=== PATIENT | male | born 1945 | race Caucasian/White ===

== ENCOUNTER 2020-04-06 18:35 | Inpatient (IN) | payer BC, MEDICARE, SELFPAY ==
--- NOTE | ~2020-04-06 | CT_ITS ---
EXAMINATION: CTA chest PE protocol DATE: 04/10/2020 13:40 INDICATION: Hemoptysis. TECHNIQUE: Computed tomography (CT) pulmonary angiogram of the chest was performed with 100 mL Omnipa que-350 intravenous contrast. Additional 3D reconstructions utilizing coronal maximum intensity proje ction (MIP) were performed. Automated exposure control and iterative reconstruction technique were em ployed. The dose-length product was 633.96 mGy-cm. COMPARISON: None FINDINGS: Excellent contrast opacification of the pulmonary arteries. There is moderate streak artifact from de nse contrast in the superior vena cava and right atrium as well as from multiple cardiac monitoring l rigoberto. Mild to moderate scattered respiratory motion artifact is prominent at the lung bases. Overall this mildly decreases sensitivity in the segmental pulmonary arteries with more significant decrease sensitivity in some of the smaller subsegmental pulmonary arteries. No definitive pulmonary embolism. There are patchy airspace opacities diffusely throughout all lung zones atypical pattern for COVID 1 9 pneumonia. Small bilateral posteriorly layering pleural effusions. Borderline heart size. Atheroscl erotic coronary artery calcification. No pericardial effusion. Multiple small mediastinal and bilater al hilar lymph nodes which are more notable for number than size and which are likely reactive. Visua l is upper abdomen is unremarkable. There are bridging osteophytes at multiple levels in the spine, c onsistent with diffuse idiopathic skeletal hyperostosis (DISH). IMPRESSION: 1. No pulmonary embolism identified although evaluation in some of the smaller subsegmental pulmonary arteries is decreased by streak and motion artifact. 2. Diffuse bilateral patchy airspace disease throughout all lung zones with typical pattern for COVID 19 pneumonia. 2. Small bilateral pleural effusions. 4. Borderline heart size with coronary artery disease. Reviewed, dictated and finalized at location A. IMPRESSION: 1. No pulmonary embolism identified although evaluation in some of the smaller subsegmental pulmonary arteries is decreased by streak and motion artifact. 2. Diffuse bilateral patchy airspace disease throughout all lung zones with typ ical pattern for COVID 19 pneumonia. 2. Small bilateral pleural effusions. 4. Borderline heart size with coronary artery disease.
--- NOTE | ~2020-04-06 | XR_ITS ---
XR chest 1V portable 04/06/2020 20:15 Indication: Shortness of breath. Covid positive. Procedure: AP portable chest Comparison: No prior studies for comparison. Findings: Right perihilar and left basilar infiltrates. Elevated right diaphragm. Heart size normal. No pleural effusion, edema or pneumothorax. Impression: 1: Right perihilar and left basilar infiltrates, compatible with pneumonia Reviewed, dictated and finalized at location A. Impression: 1: Right perihilar and left basilar infiltrates, compatible with pneumonia
[2020-04-06 18:52] VITALS: BP 120/77; PULSE 89; RESP 20; TEMP 37.7; O2SAT 97
--- NOTE | 2020-04-06 18:57 | ECG_ITS ---
Measurements Intervals [place] Rate: 86 P: 34 FL: 191 QRS: 44 QRSD: 96 T: 51 QT: 335 QTc: 402 Interpretive Statements SINUS RHYTHM DELAYED PRECORDIAL R/S TRANSITION BORDERLINE ECG Electronically Signed On 04-07-2020 6:44:44 CDT by Mateusz Cook D.O.
[2020-04-06 19:20] LABS: Basophils Percent Auto 0.3 % (0.2-1.2); Eosinophils Percent Auto 0.9 % (0-4.4); Hematocrit 51.6 % (42.0-52.0); Hemoglobin 17.4 g/dL (14.0-18.0); Immature Granulocyte Absolute 0.05 K/mm3 (0.00-0.031); Immature Granulocyte Percent A 1.5 % (0-0.5); Lymphocytes Absolute Auto 0.72 K/mm3 (0.9-3.2); Lymphocytes Percent Auto 21.7 % (18.3-44.2); Mean Corpuscular HGB Conc 33.7 g/dl (32-36); Mean Corpuscular Hemoglobin 30.7 pg (26-34); Mean Corpuscular Volume 91.2 fl (80-100); Mean Platelet Volume 9.5 fl (7.4-10.4); Monocytes Absolute Auto 0.4 K/mm3 (0.1-0.6); Monocytes Percent Auto 11.4 % (2.6-8.5); Neutrophils Absolute Auto 2.1 K/mm3 (1.3-6.7); Neutrophils Percent Auto 64.2 % (45.5-73.1); Platelet Count Result 182 k/mm3 (150-375); Red Blood Count 5.66 M/mm3 (4.6-6.20); Red Cell Distribution Width 13.9 % (11.5-14.5); White Blood Count 3.3 K/mm3 (4.5-10.0)
[2020-04-06 19:34] LABS: Blood Urea Nitrogen 30 mg/dL (9-20); Calcium 8.1 mg/dL (8.4-10.2); Carbon Dioxide 25 mmol/L (22-30); Chloride 102 mmol/L (98-107); Estimated CRCL calculation 42 ml/min; Estimated Glomerular Filt Rate 40; Glucose 91 mg/dL (75-110); Potassium 4.3 mmol/L (3.4-5.0); Sodium 138 mmol/L (137-145)
[2020-04-06] MEDS: SODIUM CHLORIDE 0.9% IV 1,000 ML 999 ML IV CONT (20:34)
--- NOTE | 2020-04-06 20:38 | ED.GENADULT ---
HPI - General Adult General Chief complaint: Shortness of Breath/Dyspnea Stated complaint: cant take deep breaths, covid + Time Seen by Provider: 04/06/20 20:01 History of Present Illness HPI narrative: Patient is a 74 y/o male complaining of dull chest pain starting 6 days ago. He states that his pain is located in mid-sternal area and rates it as 8/10. His pain is worse with respiration and cough. He also feels like he can't take a deep breath. He has cough and fever up to 102.7. He had COVID test at a [facility] facility recently and he was told that it was positive. Related Data Allergies Allergy/AdvReac Type Severity Reaction Status Date / Time No Known Allergies Allergy Verified 04/06/20 18:36 Review of Systems Constitutional: Constitutional: Reports chills, Reports fever(s), Denies headache(s) and Denies weakness Eyes: Eyes: Denies blurry vision ENT: Denies headache(s) and Denies neck pain Cardiovascular: Cardiovascular: Reports chest pain and Reports dyspnea Respiratory: Respiratory: Reports cough and Reports dyspnea Gastrointestinal: Gastrointestinal: Denies abdominal pain, Denies diarrhea, Denies nausea and Denies vomiting Genitourinary: Genitourinary: Denies hematuria and Denies dysuria Musculoskeletal: Musculoskeletal: Denies back pain and Denies neck pain Neurologic: Denies headache(s) and Denies weakness PMFSH Past Medical History Medical History Abnormal fasting glucose Benign paroxysmal positional vertigo due to bilateral vestibular disorder Carpal tunnel syndrome Chronic low back pain with right-sided sciatica Chronic neck pain COVID-19 virus detected De Quervain's tenosynovitis, left Encounter for wellness examination in adult Essential (primary) hypertension Gouty arthritis of right great toe Hypogonadism male Mixed hyperlipidemia Nocturia Obstructive sleep apnea Severe peripheral arterial disease Trigger finger of right thumb UTI (urinary tract infection) Family History Family History Father Patient's father is , Onset Age: 65 Family history of emphysema Social History Social History Smoking status: Never smoker Alcohol intake: current Gender identity (if verbalized by the patient): Male Exam Const: General: no acute distress and well developed Orientation/consciousness: oriented to person, oriented to place, oriented to time and patient oriented x3 HENMT: Head: normocephalic Ears: external ears normal General nose exam: Normal external nose present Eyes: General: appearance normal, both eyes and all related structures Conjunctivae: conjunctivae normal Neck: Neck: normal visual inspection and full ROM Chest: Chest palpation & inspection: normal inspection of the chest and no tenderness Resp: Effort & Inspection: normal respiratory effort Auscultation: clear to auscultation bilaterally Cardio: Rate: regular rate Rhythm: regular rhythm GI: GI Palp: No abdominal tenderness and Yes Soft to palpation Skin: General skin exam: normal color and turgor normal Neuro: General: oriented to person, oriented to place, oriented to time and patient oriented x3 Cognition (Neuro): normal cognition Extrem: General: normal to inspection, full ROM and no pedal edema Psych: Appearance: grossly normal Mental Status: mental status grossly normal Affect: normal affect Course Consultations Consultation #1: Discussed with Dr. Camacho, who agrees to admit. Date: 04/06/20 Time: 22:04 Vital Signs Vital signs: Vital Signs Temperature 37.7 C H 04/06/20 18:52 Pulse Rate 89 04/06/20 18:52 Respiratory Rate 20 04/06/20 18:52 Blood Pressure 120/77 04/06/20 18:52 Pulse Oximetry 97 04/06/20 18:52 Temperature 37.7 C H 04/06/20 18:52 Pulse Rate 83 04/06/20 21:02 Respiratory Rate 30 H 04/06/20 21:02 Bl
[2020-04-06 20:57] LABS: D Dimer 0.47 ug/mL (<0.48)
[2020-04-06 21:02] VITALS: BP 137/80; PULSE 83; RESP 30; O2SAT 96
[2020-04-06 21:04] LABS: Troponin I 0.014 ng/mL (0.000-0.034)
[2020-04-06 23:00] VITALS: BP 137/81; PULSE 87; RESP 18; O2SAT 96
[2020-04-06 23:10] VITALS: BP 149/71; PULSE 89; RESP 24; TEMP 38.2; O2SAT 95; BMI 31.0
--- NOTE | 2020-04-06 23:20 | ADMGEN ---
This patient, Keshav Pelletier, was admitted to [facility] Surg Room 330-01. Patient/family oriented to hospital policies and general routines including ID bracelet, bed and alarms, visiting hours, pain management, procedures, bathroom and other care routines, personal items, smoking policy, room service/diet, and visiting hours. Valuables list has been completed. Information on how to activate the Rapid Response Team has been discussed. Patient/Family are encouraged to report perceived risks to care and to ask questions if they do not understand what they are told or what they should do.
[2020-04-06] MEDS: SODIUM CHLORIDE 0.9% IV 1,000 ML 125 ML IV CONT (23:31)
[2020-04-06 23:33] LABS: Troponin I 0.015 ng/mL (0.000-0.034)
[2020-04-07] VITALS (15 sets, daily range): BP systolic 130–140; BP diastolic 73–78; PULSE 76–89; RESP 18–24; TEMP 36.8–38.4; O2SAT 90–94
[2020-04-07] MEDS: ACETAMINOPHEN 325 MG TABLET 650 MG PO ×3 (01:10→14:29)
[2020-04-07 02:00] LABS: Troponin I 0.016 ng/mL (0.000-0.034)
[2020-04-07 06:32] LABS: Hematocrit 46.3 % (42.0-52.0); Hemoglobin 15.4 g/dL (14.0-18.0); Mean Corpuscular HGB Conc 33.3 g/dl (32-36); Mean Corpuscular Hemoglobin 30.1 pg (26-34); Mean Corpuscular Volume 90.4 fl (80-100); Mean Platelet Volume 9.2 fl (7.4-10.4); Platelet Count Result 168 k/mm3 (150-375); Red Blood Count 5.12 M/mm3 (4.6-6.20); Red Cell Distribution Width 13.8 % (11.5-14.5); White Blood Count 3.5 K/mm3 (4.5-10.0)
[2020-04-07 07:02] LABS: Alanine Aminotransferase 15 U/L (4-50); Albumin Level 3.2 g/dL (3.5-5.1); Alkaline Phosphatase 56 U/L (38-126); Aspartate Amino Transferase 34 U/L (17-59); Bilirubin,Total 0.6 mg/dL (0.2-1.3); Blood Urea Nitrogen 21 mg/dL (9-20); CRP 18.6 mg/dL (<1.0); Calcium 7.4 mg/dL (8.4-10.2); Carbon Dioxide 20 mmol/L (22-30); Chloride 107 mmol/L (98-107); Estimated CRCL calculation 58 ml/min; Estimated Glomerular Filt Rate 60; Glucose 119 mg/dL (75-110); Lactate Dehydrogenase 558 U/L (313-618); Potassium 3.8 mmol/L (3.4-5.0); Sodium 137 mmol/L (137-145)
--- NOTE | 2020-04-07 08:15 | PM.IMHP ---
H&P: HPI History of Present Illness Chief complaint: darya, covid Narrative: Keshav Pelletier is a 74 year old male known to be COVID-19 positive who presented emergency room last night due to chest tightness, shortness of breath, and pleuritic chest pain. Patient states that he started having symptoms March 30 after being exposed to someone who had COVID. He tested positive at [employer] on the . He states his girlfriend and her employees also are positive. He has been mostly sleeping and he runs intermittent fevers. He does not have many chills or muscle aches. He says he has had a lingering cough since the and is not coughing up anything. He is not eating and drinking very much because he has no appetite but he does have a sense of taste and smell. He has never had a blood clot before or cardiac disease. He used to be a diabetic but with diet control, exercise and weight loss he is no longer diabetic. He denies nausea, vomiting, leg swelling, rashes, wounds, headaches, or neck stiffness. He drinks about two beers a day has never had any withdrawal like type symptoms. Review of Systems Review of Systems: All systems reviewed & are unremarkable except as noted in HPI and below PMFSH Past Medical History Medical History (Updated 04/07/20 @ 10:14 by Viviana Marrufo PA-C) Abnormal fasting glucose Benign paroxysmal positional vertigo due to bilateral vestibular disorder Carpal tunnel syndrome Chronic low back pain with right-sided sciatica Chronic neck pain COVID-19 virus detected De Quervain's tenosynovitis, left Encounter for wellness examination in adult Essential (primary) hypertension Gouty arthritis of right great toe Hypogonadism male Mixed hyperlipidemia Nocturia Obstructive sleep apnea Trigger finger of right thumb UTI (urinary tract infection) Surgical History Surgical History (Updated 04/07/20 @ 10:15 by Viviana Marrufo PA-C) History of carpal tunnel release Hx of tonsillectomy Status post trigger finger release Family History Family History (Updated 04/07/20 @ 10:16 by Viviana Marrufo PA-C) Father Patient's father is , Onset Age: 65 Family history of emphysema Son COPD (chronic obstructive pulmonary disease) Social History Social History (Updated 04/07/20 @ 10:18 by Viviana Marrufo PA-C) Social History: Patient is a former smoker and quit 1963. He drinks 2 alcoholic drinks a day. He does not do any drugs. He is a retired [employer] employee. He lives at home. He would like to be a full code and if he was unable to make his decisions he would like his son, Garo, to be his surrogate decision maker. Smoking status: Never smoker Alcohol intake: current Drinks per week: 6 Substance use: never Gender identity (if verbalized by the patient): Male Spiritual care concerns: No Meds Home Medications and Allergies Home Medications Medication Instructions Recorded Confirmed Type lisinopril 20 mg tablet 20 mg PO DAILY #90 tablet 02/26/20 04/06/20 Rx atorvastatin 5 mg PO HS 04/06/20 04/06/20 History Allergies Allergy/AdvReac Type Severity Reaction Status Date / Time No Known Allergies Allergy Verified 04/06/20 18:36 Vital Signs Vital Signs - 24 hr 04/06/20 18:52 04/06/20 21:02 04/06/20 23:00 Temperature 99.9 F H Pulse Rate 89 83 87 Respiratory Rate 20 30 H 18 Blood Pressure 120/77 137/80 137/81 Pulse Oximetry 97 96 96 04/06/20 23:10 04/07/20 01:10 04/07/20 02:00 Temperature 100.8 F H 101.1 F H 101.1 F H Pulse Rate 89 89 Respiratory Rate 24 H 24 H Blood Pressure 149/71 H 136/73 Pulse Oximetry 95 92 04/07/20 05:48 04/07/20 06:18 Temperature 100.7 F H 100.7 F H Pulse Rate 87 Respiratory Rate 22 H Blood Pressure 137/77 Pulse Oximetry 90 Exam Narrative: Exam Narrative: General:Well developed well nourished patient resting comfortably on the side of the bed in no acute distress HEENT: Normocephali
[2020-04-07] MEDS: SODIUM CHLORIDE 0.9% IV 1,000 ML 125 ML IV CONT (08:48)
[2020-04-07 09:03] LABS: Glucose Point of Care 108 (65-105)
[2020-04-07] MEDS: ENOXAPARIN 40 MG/0.4 ML SYRINGE SUB-Q (12:19)
[2020-04-07] MEDS: ALBUTEROL SULFATE (*SP) AEROSOL 1 PUFF 2 PUFF INHALATION ×3 (12:54→20:59)
[2020-04-07] MEDS: ATORVASTATIN 5 MG TABLET PO (20:50)
[2020-04-08] VITALS (15 sets, daily range): BP systolic 135–143; BP diastolic 70–80; PULSE 77–95; RESP 16–22; TEMP 36.7–37.7; O2SAT 90–95
[2020-04-08 06:27] LABS: Hematocrit 45.2 % (42.0-52.0); Hemoglobin 15.2 g/dL (14.0-18.0); Mean Corpuscular HGB Conc 33.6 g/dl (32-36); Mean Corpuscular Hemoglobin 30.1 pg (26-34); Mean Corpuscular Volume 89.5 fl (80-100); Mean Platelet Volume 9.2 fl (7.4-10.4); Platelet Count Result 184 k/mm3 (150-375); Red Blood Count 5.05 M/mm3 (4.6-6.20); Red Cell Distribution Width 13.9 % (11.5-14.5); White Blood Count 3.9 K/mm3 (4.5-10.0)
[2020-04-08 06:37] LABS: D Dimer 0.45 ug/mL (<0.48)
[2020-04-08 06:50] LABS: Blood Urea Nitrogen 15 mg/dL (9-20); Calcium 7.5 mg/dL (8.4-10.2); Carbon Dioxide 21 mmol/L (22-30); Chloride 107 mmol/L (98-107); Estimated CRCL calculation 69 ml/min; Estimated Glomerular Filt Rate > 60; Glucose 110 mg/dL (75-110); Lactate Dehydrogenase 740 U/L (313-618); Potassium 4.1 mmol/L (3.4-5.0); Sodium 137 mmol/L (137-145)
[2020-04-08 07:03] LABS: CRP 13.6 mg/dL (<1.0)
[2020-04-08] MEDS: ALBUTEROL SULFATE (*SP) AEROSOL 1 PUFF 2 PUFF INHALATION ×3 (09:18→21:31)
[2020-04-08] MEDS: ENOXAPARIN 40 MG/0.4 ML SYRINGE SUB-Q (09:41)
--- NOTE | 2020-04-08 15:37 | PM.IMPN ---
Progress Note: A&P Assessment and Plan (1) Pneumonia due to COVID-19 virus: Code(s): U07.1 - COVID-19; J12.89 - Other viral pneumonia Status: Acute Assessment and Plan: Patient tested COVID-19 positive outpatient. Symptoms began 03/30. He continues with shortness of breath, uncomfortable and having difficulty taking deep breaths. Ordered incentive spirometry and discussed importance of deep breathing. Lying prone if he can tolerate. Continue supportive care with Tylenol for fevers, added Tessalon perles for his ongoing cough. Hopeful for discharge tomorrow if no fevers or hypoxia. (2) LOI (acute kidney injury): Code(s): N17.9 - Acute kidney failure, unspecified Status: Resolved Assessment and Plan: Resolved. Monitor renal function. Home lisinopril held, can add back if his pressures increase. (3) CONRAD on CPAP: Code(s): G47.33 - Obstructive sleep apnea (adult) (pediatric); Z99.89 - Dependence on other enabling machines and devices Status: Acute Assessment and Plan: Unable to use CPAP from home due to COVID. (4) Essential (primary) hypertension: Code(s): I10 - Essential (primary) hypertension Status: Acute Assessment and Plan: BP stable with home lisinopril held, will monitor and adjust treatment as needed. (5) Mixed hyperlipidemia: Code(s): E78.2 - Mixed hyperlipidemia Status: Acute Assessment and Plan: Maintained on home statin therapy. Subjective Date/time seen: 04/08/20 1300 Interval history: Mr. Pelletier is a 74yo M admitted for pneumonia due to COVID-19. He reports he feels like crap and is having great difficulty taking deep breaths in. He is breathing in short, shallow breaths. Deep breaths illicits significant coughing. He denies chest pain. Poor appetite but no nausea or vomiting. Review of Systems Review of Systems: Narrative: Twelve systems were reviewed with pertinent positives and negatives as per HPI. Exam Narrative: Exam Narrative: General: Male sitting in bedside chair in no acute distress. HEENT: Normocephalic, EOMI, oral mucosa moist. Cardiovascular: Rate and rhythm are regular. Respiratory: Decreased breath sounds JANICE. Mild conversational dyspnea after walking back from restroom. Short shallow breaths. Tolerating room air. Abdomen: Soft, non-tender, non-distended, bowel sounds present. Extremities: Peripheral pulses intact. No edema. Neuro: No focal neurological deficits. Speech is clear. Objective Data Vital Signs Vital Signs: Last Vital Signs Temp 99.9 F H 04/08/20 18:00 Pulse 84 04/08/20 18:00 Resp 20 04/08/20 18:00 BP 143/80 H 04/08/20 18:00 Pulse Ox 94 04/08/20 18:00 Intake/Output Intake/Output: Intake & Output 04/05/20 04/06/20 04/07/20 04/08/20 23:59 23:59 23:59 23:59 Intake Total 1000 3480 950 Output Total 1000 Balance 1000 2480 950 Meds/Results Medications: Active Medications Generic Name Dose Route Start Last Admin Trade Name Freq PRN Reason Stop Dose Admin Acetaminophen 650 mg 04/07/20 10:25 04/07/20 14:29 Tylenol Tablet PO 650 mg Q4H PRN Administration Pain or Fever Albuterol 2 puff 04/07/20 12:00 04/08/20 11:56 Proventil Hfa INHALATION 2 puff QIDRT GENIA Administration Atorvastatin Calcium 5 mg 04/07/20 21:00 04/07/20 20:50 Lipitor PO 5 mg HS GENIA Administration Benzonatate 100 mg 04/08/20 17:00 Tessalon Perles PO TID GENIA Enoxaparin Sodium 40 mg 04/07/20 10:25 04/08/20 09:41 Lovenox SUB-Q 40 mg DAILY GENIA Administration Hydralazine HCl 10 mg 04/07/20 10:23 Apresoline Hcl Inj IV PUSH Q8H PRN systolic <170 Radiology Results: ITS Impressions Chest X-Ray 04/06/20 20:19 Impression: 1: Right perihilar and left ba
[2020-04-08] MEDS: ATORVASTATIN 5 MG TABLET PO (20:32)
[2020-04-08] MEDS: BENZONATATE 100 MG CAPSULE PO (20:32)
[2020-04-08] MEDS: ACETAMINOPHEN 325 MG TABLET 650 MG PO (21:35)
[2020-04-09] VITALS (19 sets, daily range): BP systolic 129–162; BP diastolic 65–79; PULSE 77–101; RESP 20–22; TEMP 36.7–37.8; O2SAT 87–97
[2020-04-09] MEDS: guaiFENesin/DEXTROMETHORPHAN 10 ML UDC PO (06:00)
[2020-04-09] MEDS: ALBUTEROL SULFATE (*SP) AEROSOL 1 PUFF 2 PUFF INHALATION ×2 (09:22→13:40)
[2020-04-09] MEDS: ACETAMINOPHEN 325 MG TABLET 650 MG PO ×2 (10:17→20:16)
[2020-04-09] MEDS: ENOXAPARIN 40 MG/0.4 ML SYRINGE SUB-Q (10:17)
[2020-04-09] MEDS: BENZONATATE 100 MG CAPSULE PO ×3 (10:17→18:00)
--- NOTE | 2020-04-09 15:48 | PM.IMPN ---
Progress Note: A&P Assessment and Plan (1) Pneumonia due to COVID-19 virus: Code(s): U07.1 - COVID-19; J12.89 - Other viral pneumonia Status: Acute Assessment and Plan: Patient tested COVID-19 positive outpatient. Symptoms began 03/30. He continues with shortness of breath, uncomfortable and having difficulty taking deep breaths. Ordered incentive spirometry and discussed importance of deep breathing. Lying prone if he can tolerate. Continue supportive care with Tylenol for fevers, added Tessalon perles for his ongoing cough. Hopeful for discharge tomorrow if no fevers or hypoxia. Home O2 eval tomorrow. (2) LOI (acute kidney injury): Code(s): N17.9 - Acute kidney failure, unspecified Status: Resolved Assessment and Plan: Resolved. Monitor renal function. Home lisinopril held, can add back if his pressures increase. (3) CONRAD on CPAP: Code(s): G47.33 - Obstructive sleep apnea (adult) (pediatric); Z99.89 - Dependence on other enabling machines and devices Status: Acute Assessment and Plan: Unable to use CPAP from home due to COVID. (4) Essential (primary) hypertension: Code(s): I10 - Essential (primary) hypertension Status: Acute Assessment and Plan: BP stable with home lisinopril held, will monitor and adjust treatment as needed. (5) Mixed hyperlipidemia: Code(s): E78.2 - Mixed hyperlipidemia Status: Acute Assessment and Plan: Maintained on home statin therapy. Subjective Date/time seen: 04/09/20 1445 Interval history: Mr. Pelletier is a 74yo M admitted for pneumonia due to COVID-19. He is still feeling quite poorly today with difficulty taking in deep breaths. He described one episode of hemoptysis today. He denies chest pain. Poor appetite but no nausea or vomiting. Review of Systems Review of Systems: Narrative: Twelve systems were reviewed with pertinent positives and negatives as per HPI. Except as documented, all other systems were reviewed and are negative. Exam Narrative: Exam Narrative: General: Male resting comfortably in bed in no acute distress. HEENT: Normocephalic, EOMI, oral mucosa moist. Cardiovascular: Rate and rhythm are regular. Respiratory: Decreased breath sounds JANICE. Mild conversational dyspnea. Short shallow breaths. Was saturating 88% on room air prior to my exam, now tolerating 1 L O2. Abdomen: Soft, non-tender, non-distended, bowel sounds present. Extremities: Peripheral pulses intact. Neuro: No focal neurological deficits. Speech is clear. Objective Data Vital Signs Vital Signs: Last Vital Signs Temp 99.4 F 04/09/20 11:15 Pulse 91 04/09/20 10:00 Resp 22 H 04/09/20 10:00 BP 162/79 H 04/09/20 10:00 Pulse Ox 92 04/09/20 13:05 Intake/Output Intake/Output: Intake & Output 04/06/20 04/07/20 04/08/20 04/09/20 23:59 23:59 23:59 23:59 Intake Total 1000 3480 1350 1440 Output Total 1000 450 700 Balance 1000 2480 900 740 Meds/Results Medications: Active Medications Generic Name Dose Route Start Last Admin Trade Name Freq PRN Reason Stop Dose Admin Acetaminophen 650 mg 04/07/20 10:25 04/09/20 10:17 Tylenol Tablet PO 650 mg Q4H PRN Administration Pain or Fever Albuterol 2 puff 04/07/20 12:00 04/09/20 13:40 Proventil Hfa INHALATION 2 puff QIDRT GENIA Administration Atorvastatin Calcium 5 mg 04/07/20 21:00 04/08/20 20:32 Lipitor PO 5 mg HS GENIA Administration Benzonatate 100 mg 04/08/20 17:00 04/09/20 13:09 Tessalon Perles PO 100 mg TID GENIA Administration Enoxaparin Sodium 40 mg 04/07/20 10:25 04/09/20 10:17 Lovenox SUB-Q 40 mg DAILY GENIA Administration Hydralazine HCl 10 mg 04/07/20 10:23 Apresoline Hcl Inj IV PUSH Q8H PRN systolic <170 Radi
[2020-04-09] MEDS: ATORVASTATIN 5 MG TABLET PO (20:16)
[2020-04-10] VITALS (15 sets, daily range): BP systolic 133–161; BP diastolic 76–87; PULSE 79–108; RESP 20–24; TEMP 36.7–38.2; O2SAT 85–97
[2020-04-10] MEDS: ACETAMINOPHEN 325 MG TABLET 650 MG PO ×2 (00:54→12:21)
[2020-04-10 06:50] LABS: Basophils Percent Auto 0.3 % (0.2-1.2); Hematocrit 46.1 % (42.0-52.0); Hemoglobin 15.4 g/dL (14.0-18.0); Immature Granulocyte Absolute 0.25 K/mm3 (0.00-0.031); Immature Granulocyte Percent A 4.2 % (0-0.5); Lymphocytes Absolute Auto 0.66 K/mm3 (0.9-3.2); Lymphocytes Percent Auto 11.1 % (18.3-44.2); Mean Corpuscular HGB Conc 33.4 g/dl (32-36); Mean Corpuscular Hemoglobin 29.7 pg (26-34); Mean Corpuscular Volume 88.8 fl (80-100); Mean Platelet Volume 9.1 fl (7.4-10.4); Monocytes Absolute Auto 0.5 K/mm3 (0.1-0.6); Monocytes Percent Auto 7.9 % (2.6-8.5); Neutrophils Absolute Auto 4.5 K/mm3 (1.3-6.7); Neutrophils Percent Auto 76.5 % (45.5-73.1); Platelet Count Result 230 k/mm3 (150-375); Red Blood Count 5.19 M/mm3 (4.6-6.20); Red Cell Distribution Width 13.6 % (11.5-14.5); White Blood Count 5.9 K/mm3 (4.5-10.0)
[2020-04-10 07:00] LABS: Blood Urea Nitrogen 16 mg/dL (9-20); Calcium 7.6 mg/dL (8.4-10.2); Carbon Dioxide 27 mmol/L (22-30); Chloride 100 mmol/L (98-107); Estimated CRCL calculation 76 ml/min; Estimated Glomerular Filt Rate > 60; Glucose 112 mg/dL (75-110); Magnesium 1.9 mg/dL (1.6-2.3); Potassium 4.2 mmol/L (3.4-5.0); Sodium 135 mmol/L (137-145)
[2020-04-10 07:04] LABS: INR 1.1; Prothrombin Time 13.9 Seconds (11.1-14.7)
[2020-04-10] MEDS: ALBUTEROL SULFATE (*SP) AEROSOL 1 PUFF 2 PUFF INHALATION ×4 (08:30→21:26)
[2020-04-10] MEDS: BENZONATATE 100 MG CAPSULE PO ×3 (08:53→17:35)
[2020-04-10] MEDS: ENOXAPARIN 40 MG/0.4 ML SYRINGE SUB-Q (08:53)
[2020-04-10] MEDS: DEXAMETHASONE 2 MG TABLET 6 MG PO (13:43)
--- NOTE | 2020-04-10 15:47 | PM.IMPN ---
Progress Note: A&P Assessment and Plan (1) Pneumonia due to COVID-19 virus: Code(s): U07.1 - COVID-19; J12.89 - Other viral pneumonia Status: Acute Assessment and Plan: Patient tested COVID-19 positive outpatient. Symptoms began 03/30. He continues with shortness of breath, uncomfortable and having difficulty taking deep breaths. Ordered incentive spirometry and discussed importance of deep breathing. Lying prone if he can tolerate. Continue supportive care with Tylenol for fevers, added Tessalon perles for his ongoing cough. Continue supplemental oxygen as needed to maintain SpO2 >92%. His oxygen requirements increased to 3L overnight. He was tolerating 2L at the time of my visit. He reported hemoptysis, dyspnea, and discomfort with deep breathing. Chest CTA was ordered and revealed diffuse patchy airspace disease throughout all lung zones with no evidence of PE. Evaluation of the smaller subsegmental arteries difficult due to streak/motion artifact. Dexamethasone 6mg PO QD and remdesivir were initiated 04/10. Monitor LFTs daily. (2) LOI (acute kidney injury): Code(s): N17.9 - Acute kidney failure, unspecified Status: Resolved Assessment and Plan: Resolved. Monitor renal function. Home lisinopril held, can add back if his pressures increase. (3) CONRAD on CPAP: Code(s): G47.33 - Obstructive sleep apnea (adult) (pediatric); Z99.89 - Dependence on other enabling machines and devices Status: Acute Assessment and Plan: Unable to use CPAP from home due to COVID. (4) Essential (primary) hypertension: Code(s): I10 - Essential (primary) hypertension Status: Acute Assessment and Plan: BP stable with home lisinopril held. Will resume lisinopril for tomorrow. (5) Mixed hyperlipidemia: Code(s): E78.2 - Mixed hyperlipidemia Status: Acute Assessment and Plan: Maintained on home statin therapy. (6) Coronary artery disease: Code(s): I25.10 - Atherosclerotic heart disease of [place] coronary artery without angina pectoris Status: Acute Assessment and Plan: CTA chest revealed borderline heart size with CAD. Will initiate ASA EC 81mg. He is on atorvastatin. He will need further evaluation outpatient for CAD as he has no known prior hx. I recommend stress test outpatient and he may set this up with his PCP. I discussed this with the patient and he verbalized understanding. Subjective Date/time seen: 04/10/20 15:47 Interval history: Mr. Pelletier is seen and examined at bedside in follow-up for pneumonia secondary to COVID-19. He reported an episode of hemoptysis today. He reports that his cough and dyspnea are much better this afternoon. He does endorse pain when he takes a deep breath. He denies chest pain. He was able to eat lunch. He is not having any nausea, vomiting, abdominal pain, or diarrhea. He denies calf tenderness. He denies headaches, lightheadedness, and dizziness. He reports exacerbation of his chronic low back pain and states that his tylenol is not helping. The patient requested I call his son Garo Pelletier. I was able to call him and provide updates/answer questions. Review of Systems Review of Systems: All systems reviewed & are unremarkable except as noted in HPI and below Exam Narrative: Exam Narrative: General: Pleasant, well-developed, well-nourished 74 y.o. male lying in the semi-mccann's position in bed in no acute distress. He is in no acute respiratory distress. HEENT: Normocephalic and atraumatic. Sclerae anicteric. Conjunctivae pink. EOMI. Mucous membranes moist. Posterior pharynx without erythema or exudate. Neck: Supple without lymphadenopathy or masses. Cardiac: Regular rate and rhythm. S1 and S2 normal. No murmur appreciated. Tel
[2020-04-10 17:11] LABS: Alanine Aminotransferase 38 U/L (4-50)
[2020-04-10] MEDS: REMDESIVIR 200 MG/NS 250 ML 200 MG/250 ML BAG 250 MG IVPB (17:35)
[2020-04-10] MEDS: ATORVASTATIN 5 MG TABLET PO (19:55)
[2020-04-11] VITALS (15 sets, daily range): BP systolic 133–147; BP diastolic 56–76; PULSE 71–85; RESP 20; TEMP 36.8–37.1; O2SAT 87–96
[2020-04-11] MEDS: ACETAMINOPHEN 325 MG TABLET 650 MG PO ×2 (03:47→09:00)
[2020-04-11 06:54] LABS: D Dimer 0.86 ug/mL (<0.48)
[2020-04-11 07:09] LABS: Alanine Aminotransferase 34 U/L (4-50); Albumin Level 3.1 g/dL (3.5-5.1); Alkaline Phosphatase 59 U/L (38-126); Aspartate Amino Transferase 62 U/L (17-59); Blood Urea Nitrogen 19 mg/dL (9-20); Calcium 7.5 mg/dL (8.4-10.2); Carbon Dioxide 24 mmol/L (22-30); Chloride 101 mmol/L (98-107); Estimated CRCL calculation 76 ml/min; Estimated Glomerular Filt Rate > 60; Glucose 125 mg/dL (75-110); Lactate Dehydrogenase 896 U/L (313-618); Potassium 4.3 mmol/L (3.4-5.0); Sodium 133 mmol/L (137-145)
[2020-04-11 07:20] LABS: CRP 18.5 mg/dL (<1.0)
[2020-04-11 07:35] LABS: Basophils Percent Auto 0.4 % (0.2-1.2); Hematocrit 46.3 % (42.0-52.0); Hemoglobin 15.5 g/dL (14.0-18.0); Immature Granulocyte Absolute 0.21 K/mm3 (0.00-0.031); Immature Granulocyte Percent A 4.5 % (0-0.5); Lymphocytes Absolute Auto 0.49 K/mm3 (0.9-3.2); Lymphocytes Percent Auto 10.4 % (18.3-44.2); Mean Corpuscular HGB Conc 33.5 g/dl (32-36); Mean Corpuscular Hemoglobin 29.9 pg (26-34); Mean Corpuscular Volume 89.4 fl (80-100); Mean Platelet Volume 9.6 fl (7.4-10.4); Monocytes Absolute Auto 0.6 K/mm3 (0.1-0.6); Monocytes Percent Auto 11.9 % (2.6-8.5); Neutrophils Absolute Auto 3.4 K/mm3 (1.3-6.7); Neutrophils Percent Auto 72.8 % (45.5-73.1); Platelet Count Result 245 k/mm3 (150-375); Red Blood Count 5.18 M/mm3 (4.6-6.20); Red Cell Distribution Width 13.6 % (11.5-14.5); White Blood Count 4.7 K/mm3 (4.5-10.0)
[2020-04-11] MEDS: lisinopriL 20 MG TABLET PO (08:50)
[2020-04-11] MEDS: DEXAMETHASONE 2 MG TABLET 6 MG PO (08:50)
[2020-04-11] MEDS: ENOXAPARIN 40 MG/0.4 ML SYRINGE SUB-Q (08:51)
[2020-04-11] MEDS: BENZONATATE 100 MG CAPSULE PO ×3 (08:51→17:22)
[2020-04-11] MEDS: ASPIRIN 81 MG ENTERIC TABLET PO (08:51)
[2020-04-11] MEDS: ALBUTEROL SULFATE (*SP) AEROSOL 1 PUFF 2 PUFF INHALATION ×4 (08:54→20:35)
--- NOTE | 2020-04-11 14:30 | PM.IMPN ---
Progress Note: A&P Assessment and Plan (1) Pneumonia due to COVID-19 virus: Code(s): U07.1 - COVID-19; J12.89 - Other viral pneumonia Status: Acute Assessment and Plan: Patient tested COVID-19 positive outpatient. Symptoms began 03/30. O2 requirement increasing. Lie prone if he can tolerate; encourage incentive spirometry; tylenol PRN for fevers; Tessalon perles. Chest CTA 04/10 showed diffuse patchy airspace disease throughout all lung zones with no evidence of PE. Evaluation of the smaller subsegmental arteries difficult due to streak/motion artifact. Dexamethasone 6mg PO QD and remdesivir were initiated 04/10. Monitor LFTs daily. (2) CONRAD on CPAP: Code(s): G47.33 - Obstructive sleep apnea (adult) (pediatric); Z99.89 - Dependence on other enabling machines and devices Status: Acute Assessment and Plan: Unable to use CPAP from home due to COVID since he is not in a negative pressure room. (3) Essential (primary) hypertension: Code(s): I10 - Essential (primary) hypertension Status: Acute Assessment and Plan: BP stable, home lisinopril was held due to LOI and resumed today. (4) Mixed hyperlipidemia: Code(s): E78.2 - Mixed hyperlipidemia Status: Acute Assessment and Plan: Maintained on home statin therapy. (5) Coronary artery disease: Qualifiers: Coronary Disease-Associated Artery/Lesion type: [place] artery [place] vs. transplanted heart: [place] heart Associated angina: without angina Qualified Code(s): I25.10 - Atherosclerotic heart disease of [place] coronary artery without angina pectoris Code(s): I25.10 - Atherosclerotic heart disease of [place] coronary artery without angina pectoris Status: Acute Assessment and Plan: CTA chest revealed borderline heart size with CAD. New ASA EC 81mg added. He is on atorvastatin. He will need further evaluation outpatient for CAD as he has no known prior hx. He could benefit from outpatient stress testing once he recovers, and he may set this up with his PCP. Discussed this again with patient today. Subjective Date/time seen: 04/11/20 1245 Interval history: Mr. Pelletier is a 74yo M admitted for pneumonia due to COVID-19. He reports his breathing is improved, more able to take deep breaths today. Still a few episodes of hemoptysis. Denies chest pain. Reports his appetite feels improved today and ate a normal breakfast. No abdominal pain, nausea or vomiting. He is more comfortable than days prior. Review of Systems Review of Systems: Narrative: Twelve systems were reviewed with pertinent positives and negatives as per HPI. Exam Narrative: Exam Narrative: General: Male resting comfortably; semi-mccann's position bed in no acute distress. HEENT: Normocephalic, EOMI, oral mucosa moist. Cardiovascular: Rate and rhythm are regular. Respiratory: Decreased breath sounds JANICE. Respirations even and nonlabored. Tolerating 4L O2. Abdomen: Soft, non-tender, non-distended, bowel sounds present. Extremities: Peripheral pulses intact. Trace edema JANICE lower extremities. Neuro: No focal neurological deficits. Speech is clear. Objective Data Vital Signs Vital Signs: Last Vital Signs Temp 98.8 F 04/11/20 10:00 Pulse 85 04/11/20 12:00 Resp 20 04/11/20 10:00 BP 136/72 04/11/20 10:00 Pulse Ox 96 04/11/20 10:00 Intake/Output Intake/Output: Intake & Output 04/08/20 04/09/20 04/10/20 04/11/20 23:59 23:59 23:59 23:59 Intake Total 1350 2660 2850 440 Output Total 450 1050 1000 2 Balance 900 1610 1850 438 Meds/Results Medications: Active Medications Generic Name Dose Route Start Last Admin Trade Name Freq PRN Reason Stop Dose Admin Acetaminophen 650 mg 04/07/20 10:25 04/11/20 09:00 Tylenol Tablet PO 650 mg Q4
[2020-04-11 16:43] LABS: Alanine Aminotransferase 34 U/L (4-50)
[2020-04-11] MEDS: REMDESIVIR 100 MG/NS 250 ML 100 MG/250 ML BAG 250 MG IVPB (17:22)
[2020-04-11] MEDS: ATORVASTATIN 5 MG TABLET PO (20:16)
[2020-04-12] VITALS (13 sets, daily range): BP systolic 127–148; BP diastolic 68–79; PULSE 47–81; RESP 18–20; TEMP 36.3–36.9; O2SAT 84–95
[2020-04-12] MEDS: ACETAMINOPHEN 325 MG TABLET 650 MG PO ×2 (00:56→20:10)
[2020-04-12 06:40] LABS: Basophils Percent Auto 0.3 % (0.2-1.2); Hematocrit 46.1 % (42.0-52.0); Hemoglobin 15.3 g/dL (14.0-18.0); Immature Granulocyte Absolute 0.19 K/mm3 (0.00-0.031); Immature Granulocyte Percent A 2.6 % (0-0.5); Lymphocytes Absolute Auto 0.67 K/mm3 (0.9-3.2); Lymphocytes Percent Auto 9.3 % (18.3-44.2); Mean Corpuscular HGB Conc 33.2 g/dl (32-36); Mean Corpuscular Hemoglobin 29.4 pg (26-34); Mean Corpuscular Volume 88.7 fl (80-100); Mean Platelet Volume 9.3 fl (7.4-10.4); Monocytes Absolute Auto 0.9 K/mm3 (0.1-0.6); Neutrophils Absolute Auto 5.4 K/mm3 (1.3-6.7); Neutrophils Percent Auto 75.8 % (45.5-73.1); Platelet Count Result 302 k/mm3 (150-375); Red Cell Distribution Width 13.5 % (11.5-14.5); White Blood Count 7.2 K/mm3 (4.5-10.0)
[2020-04-12 07:08] LABS: Alanine Aminotransferase 33 U/L (4-50); Alkaline Phosphatase 57 U/L (38-126); Aspartate Amino Transferase 58 U/L (17-59); Bilirubin,Total 0.7 mg/dL (0.2-1.3); Blood Urea Nitrogen 23 mg/dL (9-20); Calcium 7.7 mg/dL (8.4-10.2); Carbon Dioxide 25 mmol/L (22-30); Chloride 105 mmol/L (98-107); Estimated CRCL calculation 69 ml/min; Estimated Glomerular Filt Rate > 60; Glucose 136 mg/dL (75-110); Magnesium 2.2 mg/dL (1.6-2.3); Phosphorus 3.9 mg/dL (2.5-4.5); Potassium 4.5 mmol/L (3.4-5.0); Sodium 136 mmol/L (137-145)
[2020-04-12] MEDS: BENZONATATE 100 MG CAPSULE PO ×3 (08:15→17:12)
[2020-04-12] MEDS: ASPIRIN 81 MG ENTERIC TABLET PO (08:15)
[2020-04-12] MEDS: DEXAMETHASONE 2 MG TABLET 6 MG PO (08:15)
[2020-04-12] MEDS: ENOXAPARIN 40 MG/0.4 ML SYRINGE SUB-Q (08:15)
[2020-04-12] MEDS: lisinopriL 20 MG TABLET PO (08:15)
[2020-04-12] MEDS: ALBUTEROL SULFATE (*SP) AEROSOL 1 PUFF 2 PUFF INHALATION ×4 (08:52→22:00)
--- NOTE | 2020-04-12 15:11 | PM.IMPN ---
Progress Note: A&P Assessment and Plan (1) Pneumonia due to COVID-19 virus: Code(s): U07.1 - COVID-19; J12.89 - Other viral pneumonia Status: Acute Assessment and Plan: Patient tested COVID-19 positive outpatient. Symptoms began 03/30. O2 requirement increasing. Lie prone if he can tolerate; encourage incentive spirometry; tylenol PRN for fevers; Tessalon perles. Chest CTA 04/10 showed diffuse patchy airspace disease throughout all lung zones with no evidence of PE. Evaluation of the smaller subsegmental arteries difficult due to streak/motion artifact. Dexamethasone 6mg PO QD and remdesivir were initiated 04/10 (day 3). Monitor LFTs daily. (2) CONRAD on CPAP: Code(s): G47.33 - Obstructive sleep apnea (adult) (pediatric); Z99.89 - Dependence on other enabling machines and devices Status: Acute Assessment and Plan: Unable to use CPAP from home due to COVID since he is not in a negative pressure room. (3) Essential (primary) hypertension: Code(s): I10 - Essential (primary) hypertension Status: Acute Assessment and Plan: BP stable, home lisinopril was held due to LOI and resumed. (4) Mixed hyperlipidemia: Code(s): E78.2 - Mixed hyperlipidemia Status: Acute Assessment and Plan: Maintained on home statin therapy. (5) Coronary artery disease: Qualifiers: Coronary Disease-Associated Artery/Lesion type: [place] artery [place] vs. transplanted heart: [place] heart Associated angina: without angina Qualified Code(s): I25.10 - Atherosclerotic heart disease of [place] coronary artery without angina pectoris Code(s): I25.10 - Atherosclerotic heart disease of [place] coronary artery without angina pectoris Status: Acute Assessment and Plan: CTA chest revealed borderline heart size with CAD. New ASA EC 81mg added. He is on atorvastatin. He will need further evaluation outpatient for CAD as he has no known prior hx. He could benefit from outpatient stress testing once he recovers, and he may set this up with his PCP. Subjective Date/time seen: 04/12/20 1400 Interval history: Mr. Pelletier is a 74yo M admitted for pneumonia due to COVID-19. He is feeling a bit improved and feels he is able to take deeper breaths today. He describes some mild right chest wall tenderness with deep breaths. No hemoptysis today. His appetite is improving and he is tolerating oral intake. No nausea, vomiting, or diarrhea. Review of Systems Review of Systems: Narrative: Twelve systems were reviewed with pertinent positives and negatives as per HPI. Exam Narrative: Exam Narrative: General: Male sitting comfortably on edge of bed eating lunch in no acute distress. HEENT: Normocephalic, EOMI, oral mucosa moist. Cardiovascular: Rate and rhythm are regular. Respiratory: Decreased breath sounds JANICE. Respirations even and nonlabored. Tolerating 2L O2 at time of my exam with saturations in low 90s. Abdomen: Soft, non-tender, non-distended, bowel sounds present. Extremities: Peripheral pulses intact. Trace edema JANICE lower extremities. Neuro: No focal neurological deficits. Speech is clear. Objective Data Vital Signs Vital Signs: Last Vital Signs Temp 97.5 F L 04/12/20 14:00 Pulse 70 04/12/20 14:00 Resp 18 04/12/20 14:00 BP 127/68 04/12/20 14:00 Pulse Ox 94 04/12/20 14:00 Intake/Output Intake/Output: Intake & Output 04/09/20 04/10/20 04/11/20 04/12/20 23:59 23:59 23:59 23:59 Intake Total 2660 2850 2050 1030 Output Total 1050 1000 852 625 Balance 1610 1850 1198 405 Meds/Results Medications: Active Medications Generic Name Dose Route Start Last Admin Trade Name Freq PRN Reason Stop Dose Admin Acetaminophen 650 mg 04/07/20 10:25 04/12/20 00:56 Tylenol Tablet PO 650 mg Q4H P
[2020-04-12 16:41] LABS: Alanine Aminotransferase 34 U/L (4-50)
[2020-04-12] MEDS: REMDESIVIR 100 MG/NS 250 ML 100 MG/250 ML BAG 250 MG IVPB (17:12)
[2020-04-12] MEDS: ATORVASTATIN 5 MG TABLET PO (20:10)
[2020-04-13] VITALS (15 sets, daily range): BP systolic 135–158; BP diastolic 67–83; PULSE 50–75; RESP 16–20; TEMP 36.3–36.6; O2SAT 91–98
[2020-04-13] MEDS: ACETAMINOPHEN 325 MG TABLET 650 MG PO ×2 (02:38→20:19)
[2020-04-13 06:35] LABS: Basophils Percent Auto 0.3 % (0.2-1.2); Eosinophils Percent Auto 0.1 % (0-4.4); Hematocrit 44.8 % (42.0-52.0); Immature Granulocyte Absolute 0.22 K/mm3 (0.00-0.031); Immature Granulocyte Percent A 2.3 % (0-0.5); Lymphocytes Absolute Auto 0.89 K/mm3 (0.9-3.2); Lymphocytes Percent Auto 9.2 % (18.3-44.2); Mean Corpuscular HGB Conc 33.5 g/dl (32-36); Mean Corpuscular Hemoglobin 29.9 pg (26-34); Mean Corpuscular Volume 89.4 fl (80-100); Mean Platelet Volume 9.2 fl (7.4-10.4); Monocytes Percent Auto 10.6 % (2.6-8.5); Neutrophils Absolute Auto 7.5 K/mm3 (1.3-6.7); Neutrophils Percent Auto 77.5 % (45.5-73.1); Platelet Count Result 337 k/mm3 (150-375); Red Blood Count 5.01 M/mm3 (4.6-6.20); Red Cell Distribution Width 13.8 % (11.5-14.5); White Blood Count 9.7 K/mm3 (4.5-10.0)
[2020-04-13 06:42] LABS: D Dimer 0.58 ug/mL (<0.48)
[2020-04-13 06:55] LABS: Alanine Aminotransferase 35 U/L (4-50); Albumin Level 2.9 g/dL (3.5-5.1); Alkaline Phosphatase 55 U/L (38-126); Aspartate Amino Transferase 60 U/L (17-59); Bilirubin,Total 0.7 mg/dL (0.2-1.3); Blood Urea Nitrogen 29 mg/dL (9-20); CRP 4.7 mg/dL (<1.0); Calcium 7.6 mg/dL (8.4-10.2); Carbon Dioxide 29 mmol/L (22-30); Chloride 104 mmol/L (98-107); Estimated CRCL calculation 69 ml/min; Estimated Glomerular Filt Rate > 60; Glucose 132 mg/dL (75-110); Lactate Dehydrogenase 816 U/L (313-618); Magnesium 2.1 mg/dL (1.6-2.3); Potassium 4.4 mmol/L (3.4-5.0); Sodium 137 mmol/L (137-145)
[2020-04-13] MEDS: ALBUTEROL SULFATE (*SP) AEROSOL 1 PUFF 2 PUFF INHALATION ×4 (08:32→20:56)
[2020-04-13] MEDS: ASPIRIN 81 MG ENTERIC TABLET PO (08:54)
[2020-04-13] MEDS: DEXAMETHASONE 2 MG TABLET 6 MG PO (08:54)
[2020-04-13] MEDS: BENZONATATE 100 MG CAPSULE PO ×3 (08:54→16:33)
[2020-04-13] MEDS: ENOXAPARIN 40 MG/0.4 ML SYRINGE SUB-Q (08:54)
[2020-04-13] MEDS: lisinopriL 20 MG TABLET PO (08:54)
--- NOTE | 2020-04-13 11:44 | PM.IMPN ---
Progress Note: A&P Assessment and Plan (1) Pneumonia due to COVID-19 virus: Code(s): U07.1 - COVID-19; J12.89 - Other viral pneumonia Status: Acute Assessment and Plan: Patient tested COVID-19 positive outpatient. Symptoms began 03/30. Improving; O2 requirement stable. Lie prone if he can tolerate; encourage incentive spirometry; tylenol PRN for fevers; Tessalon perles. Chest CTA 04/10 showed diffuse patchy airspace disease throughout all lung zones with no evidence of PE. Evaluation of the smaller subsegmental arteries difficult due to streak/motion artifact. Dexamethasone 6mg PO QD and remdesivir were initiated 04/10 (day 4). Monitor LFTs daily. Anticipate possible discharge tomorrow after day 5 of remdesivir, home O2 eval. Patient agreeable with this plan. (2) CONRAD on CPAP: Code(s): G47.33 - Obstructive sleep apnea (adult) (pediatric); Z99.89 - Dependence on other enabling machines and devices Status: Acute Assessment and Plan: Unable to use CPAP from home due to COVID since he is not in a negative pressure room. (3) Essential (primary) hypertension: Code(s): I10 - Essential (primary) hypertension Status: Acute Assessment and Plan: BP stable last 135/72, maintained on home lisinopril. (4) Mixed hyperlipidemia: Code(s): E78.2 - Mixed hyperlipidemia Status: Acute Assessment and Plan: Maintained on home statin therapy. (5) Coronary artery disease: Qualifiers: Associated angina: without angina Coronary Disease-Associated Artery/Lesion type: [place] artery [place] vs. transplanted heart: [place] heart Qualified Code(s): I25.10 - Atherosclerotic heart disease of [place] coronary artery without angina pectoris Code(s): I25.10 - Atherosclerotic heart disease of [place] coronary artery without angina pectoris Status: Acute Assessment and Plan: CTA chest revealed borderline heart size with CAD. New ASA EC 81mg added. He is on atorvastatin. He will need further evaluation outpatient for CAD as he has no known prior hx. He could benefit from outpatient stress testing once he recovers, and he may set this up with his PCP. Subjective Date/time seen: 04/13/20 11:00 Interval history: Mr. Pelletier is a 74yo M admitted for pneumonia due to COVID-19. He is feeling improved overall, able to take deeper breaths. Denies chest pain, shortness of breath improved. Appetite is improving and he is tolerating oral intake without nausea, vomiting, or diarrhea. Review of Systems Review of Systems: Narrative: Twelve systems were reviewed with pertinent positives and negatives as per HPI. Exam Narrative: Exam Narrative: General: Male resting comfortably in bed in no acute distress. HEENT: Normocephalic, EOMI, oral mucosa moist. Cardiovascular: Rate and rhythm are regular. Respiratory: Decreased breath sounds JANICE but better air movement. Respirations even and nonlabored. Tolerating 2L O2 at time of my exam with saturations in low 90s. Abdomen: Soft, non-tender, non-distended, bowel sounds present. Extremities: Peripheral pulses intact. No edema. Neuro: No focal neurological deficits. Speech is clear. Objective Data Vital Signs Vital Signs: Last Vital Signs Temp 97.8 F 04/13/20 10:00 Pulse 62 04/13/20 10:00 Resp 18 04/13/20 10:00 BP 135/72 04/13/20 10:00 Pulse Ox 98 04/13/20 10:00 Intake/Output Intake/Output: Intake & Output 04/10/20 04/11/20 04/12/20 04/13/20 23:59 23:59 23:59 23:59 Intake Total 2850 2050 1830 300 Output Total 2410 199 7749 350 Balance 1850 1198 805 -50 Meds/Results Medications: Active Medications Generic Name Dose Route Start Last Admin Trade Name Freq PRN Reason Stop Dose Admin Acetaminophen 650 mg 04/07/20 10:25 04/13/20 02:38 Tyle
[2020-04-13] MEDS: REMDESIVIR 100 MG/NS 250 ML 100 MG/250 ML BAG 250 MG IVPB (16:33)
[2020-04-13 16:34] LABS: Alanine Aminotransferase 54 U/L (4-50)
[2020-04-13] MEDS: ATORVASTATIN 5 MG TABLET PO (20:19)
[2020-04-14] VITALS (11 sets, daily range): BP systolic 126–156; BP diastolic 64–80; PULSE 42–98; RESP 18–20; TEMP 36.3–36.9; O2SAT 90–99
[2020-04-14] MEDS: ACETAMINOPHEN 325 MG TABLET 650 MG PO (02:29)
[2020-04-14] MEDS: ALBUTEROL SULFATE (*SP) AEROSOL 1 PUFF 2 PUFF INHALATION ×2 (08:26→13:00)
[2020-04-14] MEDS: lisinopriL 20 MG TABLET PO (08:55)
[2020-04-14] MEDS: ASPIRIN 81 MG ENTERIC TABLET PO (08:55)
[2020-04-14] MEDS: BENZONATATE 100 MG CAPSULE PO ×2 (08:55→12:16)
[2020-04-14] MEDS: ENOXAPARIN 40 MG/0.4 ML SYRINGE SUB-Q (08:55)
[2020-04-14] MEDS: DEXAMETHASONE 2 MG TABLET 6 MG PO (08:55)
--- NOTE | 2020-04-14 10:19 | PCNWS ---
Weekly nutritional screen. Patient is tolerating current diet with adequate intake. No weight loss reported. No nutritional needs at this time.
--- NOTE | 2020-04-14 10:19 | PCNWS ---
Addendum entered by Hanna Bush RD, LDN 04/14/20 12:41: Documentation made on the wrong patient. Original Note: Weekly nutritional screen. Patient is tolerating current diet with adequate intake and consuming 100% of meals. Patient reports a good appetite and did not report any nausea/vomiting or other diet related concerns. No weight loss reported. No nutritional needs at this time.
--- NOTE | 2020-04-14 11:32 | PM.DS ---
DS: Admitting Diagnosis Admitting Diagnosis Admitting Diagnosis: COVID-19 DS: Discharge Diagnosis Discharge Diagnosis (1) Pneumonia due to COVID-19 virus: Code(s): U07.1 - COVID-19; J12.89 - Other viral pneumonia Status: Acute Assessment and Plan: Patient tested COVID-19 positive outpatient. Symptoms began 03/30. Chest CTA 04/10 showed diffuse patchy airspace disease throughout all lung zones with no evidence of PE. Dexamethasone 6mg PO QD and remdesivir were initiated 04/10. He completed the 5-day course of remdesivir; completed 5 days of dexamethason and discharged with oral dexamethasone to complete the 10-day course. He was kept on Lovenox for VTE prophylaxis while hospitalized. Home oxygen evaluation performed day of discharge and he did not require O2. Discussed he could purchase a pulse oximeter at home if he desired. (2) CONRAD on CPAP: Code(s): G47.33 - Obstructive sleep apnea (adult) (pediatric); Z99.89 - Dependence on other enabling machines and devices Status: Acute Assessment and Plan: Unable to use CPAP from home due to COVID since he is not in a negative pressure room. (3) Essential (primary) hypertension: Code(s): I10 - Essential (primary) hypertension Status: Acute Assessment and Plan: BP stable maintained on home lisinopril. (4) Mixed hyperlipidemia: Code(s): E78.2 - Mixed hyperlipidemia Status: Acute Assessment and Plan: Maintained on home statin therapy. (5) Coronary artery disease: Qualifiers: Coronary Disease-Associated Artery/Lesion type: [place] artery [place] vs. transplanted heart: [place] heart Associated angina: without angina Qualified Code(s): I25.10 - Atherosclerotic heart disease of [place] coronary artery without angina pectoris Code(s): I25.10 - Atherosclerotic heart disease of [place] coronary artery without angina pectoris Status: Acute Assessment and Plan: CTA chest revealed borderline heart size with CAD. New ASA EC 81mg added. He is on atorvastatin. He will benefit from further evaluation outpatient for CAD as he has no known prior hx. DS: Summary Hospital Course Hospital Course: Date of Service 04/14/20 Mr. Pelletier is a 73yo M with history of hypertension and hyperlipidemia who presented to the ED for evaluation of fever, weakness, fatigue, and worsening shortness of breath. He tested positive for COVID-19 04/01/2020. Initially, he was not requiring oxygen for the first 2 days of his admission but continued to not be able to take a deep breath. CTA chest demonstrated diffuse bilateral patchy airspace disease throughout all lung zones, with no evidence of pulmonary embolism. On day 3 of admission he became hypoxic although he was feeling a bit improved. Once he was requiring supplemental O2, he was started on a course of Remdesivir and dexamethasone. His oxygen requirement was up to 4.5 L/min and improved over the course of his admission. He underwent a home oxygen evaluation by respiratory therapy on day of discharge and was tolerating room air, did not require home O2 set up. Overall he was feeling improved and he was hemodynamically stable for discharge 04/14/20. Time Spent with Patient Time attestation: Total time spent providing and/or coordinating discharge services: 40 minutes Exam Narrative: Exam Narrative: General: Male resting comfortably in bed in no acute distress. HEENT: Normocephalic, EOMI, oral mucosa moist. Cardiovascular: Rate and rhythm are regular. Respiratory: Decreased breath sounds JANICE but better air movement. Respirations even and nonlabored. Tolerating room air. Abdomen: Soft, non-tender, non-distended, bowel sounds present. Extremities: Peripheral pulses intact. No edema. Neuro: No focal neurological deficits. Speech is cl
--- NOTE | 2020-04-14 12:42 | PCNSR ---
On 04/14/20, the student, Félix Mcnulty, provided care and completed [facility] documentation on this patient. I have reviewed the student's documentation and agree with the findings.
--- NOTE | 2020-04-14 12:45 | PCRCNOTE ---
HOME O2 EVAL COMPLETE, NO REQUIREMENTS
[2020-04-14] MEDS: REMDESIVIR 100 MG/NS 250 ML 100 MG/250 ML BAG 250 MG IVPB (14:36)
== END 2020-04-14 16:30 | disposition home or self-care (01) | DRG 177 ==
LOC: ANHED 22:11 → ANH3MEDSUR 22:37
PROVIDERS: Emergency Medicine; Physician Assistant; Admitting Provider Internal Medicine; Emergency Provider Emergency Medicine; PCP Family Medicine; Visit Provider Physician Assistant
DX: U07.1 COVID-19 (principal); J12.89 Other viral pneumonia; N17.9 Acute kidney failure, unspecified; E78.2 Mixed hyperlipidemia; G47.33 Obstructive sleep apnea (adult) (pediatric); I10 Essential (primary) hypertension; I25.10 Atherosclerotic heart disease of native coronary artery without angina pectoris
CPT/HCPCS: 36415; 71045; 71275; 80048; 80053; 82728; 83036; 83605; 83615; 83735; 84100; 84460; 84484; 85025; 85027; 85380; 85610; 86140; 87040; 87070; 87205; 93005; 94618; 94640; 96360; 96361; 99285; A9270; G0378; J1650; J7030; J8540; Q9967

== ENCOUNTER → 2020-08-06 12:22 | Outpatient (CLI) | payer BC, SELFPAY ==
--- NOTE | ~2020-08-06 | XR_ITS ---
EXAMINATION: [id number] DATE: 08/06/2020 14:51 INDICATION: Right chest pain. TECHNIQUE: A frontal view of the chest and 3 views of the right ribs were obtained. COMPARISON: Chest CT 04/10/2020 FINDINGS: A calcified left lung nodule is consistent with old granulomatous disease. No pleural effus ion or pneumothorax. The heart size is normal. IMPRESSION: 1. No rib fracture. Reviewed, dictated and finalized at location B. D AMBASSADOR IMPRESSION: 1. No rib fracture.
--- NOTE | ~2020-08-06 | MR_ITS ---
EXAMINATION: MR lumbar spine wo con DATE: 08/06/2020 12:55 INDICATION: Right-sided low back pain. Lumbar radiculopathy. TECHNIQUE: Magnetic resonance imaging (MRI) of the lumbar spine was performed without intravenous con trast. Sequences included sagittal T2-weighted FSE, sagittal T2-weighted FS FSE, sagittal T1-weighted FSE, and axial T2-weighted FSE. COMPARISON: None FINDINGS: Bone alignment is normal. Vertebral body heights are normal. There is mildly decreased disc height at L4-L5. The distal spinal cord signal intensity is normal. The conus medullaris is at T12. The following disc levels are specifically discussed: L1-L2: The disc does not extend beyond the endplate margin. There is moderate bilateral facet joint o steoarthritis. There is no neural foraminal stenosis. There is no central canal stenosis. L2-L3: There is a right foraminal protrusion. There is severe bilateral facet joint osteoarthritis. T here is mild right neural foraminal stenosis. There is no central canal stenosis. L3-L4: The disc is bulging and has an annular fissure. There is moderate bilateral facet joint osteoa rthritis. There is mild right and moderate left neural foraminal stenosis. There is mild central salud l stenosis. L4-L5: The disc is bulging and has an annular fissure. There is severe bilateral facet joint osteoart hritis. There is moderate bilateral neural foraminal stenosis. There is severe central canal stenosis . L5-S1: The disc does not extend beyond the endplate margin. There is severe bilateral facet joint ost eoarthritis. There is mild bilateral neural foraminal stenosis. There is no central canal stenosis. IMPRESSION: 1. Severe spondylosis at L4-L5. Mild to moderate spondylosis at other levels. Reviewed, dictated and finalized at location B. LE BAR ASSEMBLER
== END ==
PROVIDERS: Visit Provider Nurse Practitioner Family
DX: R07.81 Pleurodynia (principal); M47.26 Other spondylosis with radiculopathy, lumbar region
CPT/HCPCS: 71101; 72148

== ENCOUNTER → 2021-06-17 14:58 | Outpatient (CLI) | payer MEDICARE, BC, SELFPAY ==
--- NOTE | ~2021-06-17 | XR_ITS ---
EXAMINATION: XR knee RT 3V DATE: 06/17/2021 15:19 INDICATION: Right knee pain. TECHNIQUE: 3 views of right knee were obtained. COMPARISON: None. FINDINGS: Bone alignment is normal. No fracture. There is mild tricompartmental osteoarthritis charac terized by tiny marginal osteophytes. No joint space narrowing. No knee joint effusion. IMPRESSION: 1. Mild right knee osteoarthritis. Reviewed, dictated and finalized at location A.
== END ==
PROVIDERS: PCP Family Medicine; Visit Provider Nurse Practitioner Family
DX: M17.11 Unilateral primary osteoarthritis, right knee (principal)
CPT/HCPCS: 73562

== ENCOUNTER 2021-09-09 16:23 | Outpatient (CLI) | payer MEDICARE, BC, SELFPAY ==
--- NOTE | ~2021-09-09 | MR_ITS ---
EXAMINATION: MR knee RT wo con DATE: 09/09/2021 17:21 INDICATION: Right knee pain. TECHNIQUE: Magnetic resonance imaging (MRI) of the right knee was performed without intravenous contr ast. Sequences included axial PD-weighted FS FSE, coronal PD-weighted FSE and PD-weighted FS FSE, sag ittal PD-weighted FSE, and sagittal T2-weighted FS FSE. COMPARISON: Right knee radiographs 06/17/2021 FINDINGS: Medial compartment: There is a complex tear of body and posterior horn of medial meniscus. There is partial-thickness car tilage loss of tibial condyle, deep at the central articular surface. There is partial-thickness cart ilage loss of femoral condyle, deep at the central and medial articular surface. There is a subchondr al insufficiency fracture of medial femoral condyle with low signal fracture line and surrounding bon e marrow edema. Lateral compartment: Lateral meniscus is normal. There is cartilage surface irregularity of tibial condyle. There is deep cartilage fissuring of femoral condyle involving the central articular surface. Patellofemoral compartment: There is full-thickness cartilage loss of patellar lateral facet, median ridge, and medial facet appr oximately with mild subchondral edema-like marrow signal intensity. There is extensive partial thickn ess cartilage loss of patella. There is cartilage surface irregularity of trochlea. Osteophytes are n oted. Ligaments and tendons: The anterior and posterior cruciate ligaments are normal. There are changes of prior sprains of media l collateral ligament and fibular collateral ligament characterized by thickening and increased signa l intensity proximally. There is moderate patellar tendinopathy. Fluid: There is a small knee joint effusion. There is a moderate-sized Connolly's cyst. IMPRESSION: 1. Subchondral insufficiency fracture of medial femoral condyle. 2. Severe chondrosis of patellofemoral compartment, moderate chondrosis of medial compartment, and mi ld chondrosis of lateral compartment. 3. Complex tear of medial meniscus. 4. Small knee joint effusion. 5. Moderate-sized Connolly's cyst. Reviewed, dictated and finalized at location A. ROOM SUPERVISOR IMPRESSION: 1. Subchondral insufficiency fracture of medial femoral condyle. 2. Severe chondrosis of patellofemoral compartment, moderate chondrosis of medi al compartment, and mild chondrosis of lateral compartment. 3. Complex tear of medial meniscus. 4. Small knee joint effusion. 5. Moderate-sized Ocnnolly's cyst.
== END 2021-09-09 16:24 | disposition home or self-care (01) ==
PROVIDERS: PCP Family Medicine; Visit Provider Orthopaedic Surgery
DX: M25.461 Effusion, right knee (principal); M71.21 Synovial cyst of popliteal space [Baker], right knee; S83.231A Complex tear of medial meniscus, current injury, right knee, initial encounter; S72.431A Displaced fracture of medial condyle of right femur, initial encounter for closed fracture
CPT/HCPCS: 73721

== ENCOUNTER 2022-01-08 12:51 | Outpatient (CLI) | payer MEDICARE, SELFPAY ==
--- NOTE | ~2022-01-08 | XR_ITS ---
EXAMINATION: XR chest 2V DATE: 01/08/2022 12:41 INDICATION: Essential hypertension TECHNIQUE: Frontal and lateral views of the chest are obtained COMPARISON: 04/06/2020 FINDINGS: The lungs are free of acute opacities. Calcified pulmonary nodules are consistent with old granulomatous disease. There is no pleural effusion or pneumothorax. The cardiomediastinal silhouette is normal. There are bridging osteophytes at multiple levels in the spine, consistent with diffuse i diopathic skeletal hyperostosis (DISH). IMPRESSION: 1. No acute cardiopulmonary abnormality. Reviewed, dictated and finalized at location A.
--- NOTE | 2022-01-08 12:59 | ECG_ITS ---
Measurements Intervals [place] Rate: 63 P: 33 [place]: 221 QRS: 43 QRSD: 103 T: 35 QT: 371 QTc: 380 Interpretive Statements SINUS RHYTHM WITH FIRST DEGREE AV BLOCK ABNORMAL ECG COMPARED TO ECG 04/06/2020 19:01:39 FIRST DEGREE AV BLOCK NOW PRESENT Electronically Signed On 01-08-2022 15:57:11 CDT by David Bloom M.D.
[2022-01-08 14:21] LABS: Basophils Absolute Auto 0.1 K/mm3 (0.0-0.1); Basophils Percent Auto 0.8 % (0.2-1.2); Eosinophils Absolute Auto 0.2 K/mm3 (0-0.3); Eosinophils Percent Auto 2.2 % (0-4.4); Hematocrit 52.1 % (42.0-52.0); Hemoglobin 16.7 g/dL (14.0-18.0); Immature Granulocyte Absolute 0.18 K/mm3 (0.00-0.031); Immature Granulocyte Percent A 1.9 % (0-0.5); Lymphocytes Absolute Auto 2.71 K/mm3 (0.9-3.2); Lymphocytes Percent Auto 28.7 % (18.3-44.2); Mean Corpuscular HGB Conc 32.1 g/dl (32-36); Mean Corpuscular Volume 93.5 fl (80-100); Mean Platelet Volume 9.7 fl (7.4-10.4); Monocytes Absolute Auto 1.1 K/mm3 (0.1-0.6); Monocytes Percent Auto 11.6 % (2.6-8.5); Neutrophils Absolute Auto 5.2 K/mm3 (1.3-6.7); Neutrophils Percent Auto 54.8 % (45.5-73.1); Platelet Count Result 277 k/mm3 (150-375); Red Blood Count 5.57 M/mm3 (4.6-6.20); Red Cell Distribution Width 13.9 % (11.5-14.5); White Blood Count 9.5 K/mm3 (4.5-10.0)
[2022-01-08 14:31] LABS: Alanine Aminotransferase 31 U/L (4-50); Albumin Level 4.2 g/dL (3.5-5.1); Alkaline Phosphatase 79 U/L (38-126); Anion Gap 8 mmol/L (8-16); Aspartate Amino Transferase 35 U/L (17-59); Blood Urea Nitrogen 28 mg/dL (9-20); Calcium 8.5 mg/dL (8.4-10.2); Carbon Dioxide 25 mmol/L (22-30); Chloride 106 mmol/L (98-107); Estimated Glomerular Filt Rate 54; Glucose 81 mg/dL (65-110); Potassium 4.4 mmol/L (3.4-5.0); Sodium 139 mmol/L (137-145)
[2022-01-08 14:38] LABS: Add Urine Microscopic? NO; Appearance Urine Clear (Clear); Bilirubin Urine Negative (Negative); Blood Urine Negative (Negative); Color Urine Yellow (Yellow); Glucose Urine UA Negative (Negative); Ketones Urine Negative (Negative); Leukocyte Esterase Ur Negative LEU/UL (NEGATIVE); Nitrate Urine Negative (Negative); Protein Urine Negative (Negative); Urobilinogen Urine 0.2 mg/dL (<2.0)
== END 2022-01-08 12:52 | disposition home or self-care (01) ==
PROVIDERS: PCP Family Medicine; Visit Provider Family Medicine
DX: E78.2 Mixed hyperlipidemia (principal); I10 Essential (primary) hypertension; G47.33 Obstructive sleep apnea (adult) (pediatric); Z99.89 Dependence on other enabling machines and devices; N18.32 Chronic kidney disease, stage 3b; I44.0 Atrioventricular block, first degree
CPT/HCPCS: 36415; 71046; 80048; 80076; 81003; 85025; 93005

== ENCOUNTER 2022-05-07 08:42 | Inpatient (IN) | payer MEDICARE, SELFPAY ==
[2022-05-07] VITALS (13 sets, daily range): BP systolic 131–164; BP diastolic 71–91; PULSE 89–106; RESP 14–25; TEMP 37.1–37.7; O2SAT 91–97; BMI 34.4
--- NOTE | ~2022-05-07 | XR_ITS ---
EXAMINATION: XR abdomen/kub 1V INDICATION: Abdominal distention TECHNIQUE: Supine views of the abdomen were obtained on 2 radiographs. COMPARISON: CT, 05/07/2022 FINDINGS: There are mildly dilated loops of small bowel in the midabdomen. No free intraperitoneal ga s is identified. Gas is seen in the colon to the level of the rectum. The visualized lung bases are c lear. There is mild osteoarthritis of the hips. Moderate lumbar spondylosis is noted. IMPRESSION: 1. Persistently dilated small bowel, consistent with ileus versus partial obstruction. Reviewed, dictated and finalized at location A. IMPRESSION: 1. Persistently dilated small bowel, consistent with ileus versus partial obstr uction.
--- NOTE | ~2022-05-07 | XR_ITS ---
XR chest 2V DATE: 05/07/2022 09:30 INDICATION: Worsening epigastric pain for 4 days TECHNIQUE: AP and lateral views for COMPARISON: PA and lateral chest . FINDINGS: There is discoid atelectasis at the right lung base and chronic mild elevation of the right diaphragm. The lungs otherwise appear clear of infiltrate or consolidation. No pleural effusion or pulmonary vas cular congestion or pneumothorax. Normal heart size. No hilar or mediastinal enlargement. Mild aortic arch calcification, minimal aorti c unfolding. Osteopenia. IMPRESSION: Mild atelectasis at the right lung base Reviewed, dictated and finalized at location A.
--- NOTE | ~2022-05-07 | CT_ITS ---
EXAMINATION: CT abdomen pelvis w con DATE: 05/07/2022 10:10 INDICATION: Diffuse abdominal pain TECHNIQUE: Computed tomography (CT) of the abdomen and pelvis was performed with 100 CC Omnipaque 350 intravenous contrast. Automated exposure control and iterative reconstruction technique were employe d. Exam dose: 1372.03 mGy-cm total exam DLP. COMPARISON: None. FINDINGS: There is discoid atelectasis and/or scarring at the base of the lingula, right lower lobe. In middle lobe. Normal heart size. Prominent coronary artery calcification. No pericardial effusion. The liver, gallbladder, bile ducts, spleen, pancreas, pancreatic duct, and adrenal glands and kidneys are unremarkable. No urinary tract calculus or hydroureteronephrosis. There is moderate prostate enl argement and calcification. The urinary bladder appears unremarkable. Bilateral small fat-containing inguinal hernias. Small amount of free fluid in the dependent lower right pelvis. There is atherosclerotic calcification of the abdominal aorta, iliac and femoral arteries. No abdomin al aortic aneurysm. No intraperitoneal or retroperitoneal or pelvic mass lesion or adenopathy. There is dilated small bowel with numerous small bowel air-fluid levels. There are fluid levels in th e ascending and transverse colon. Findings may be due to enterocolitis or adynamic ileus. Partial sma ll bowel obstruction is not excluded. Consider small bowel series as clinically appropriate. Diverticulosis of the colon; no evidence of diverticulitis. No intraperitoneal free air. Diffuse idiopathic skeletal hyperostosis of the thoracic and lumbar spine. Bilateral hip osteoarthritis. No suspicious osteolytic or osteoblastic lesions. IMPRESSION: Dilated small bowel with air-fluid levels, nondilated ascending and transverse colon wit h fluid levels. Consider enterocolitis. Partial small bowel obstruction is not excluded Diverticulosis of the colon; no evidence of diverticulitis. Reviewed, dictated and finalized at Location A. Reviewed, dictated and finalized at location A. IMPRESSION: Dilated small bowel with air-fluid levels, nondilated ascending an d transverse colon with fluid levels. Consider enterocolitis. Partial small bow el obstruction is not excluded Diverticulosis of the colon; no evidence of diverticulitis.
--- NOTE | 2022-05-07 08:45 | ECG_ITS ---
Measurements Intervals [place] Rate: 96 P: 11 NM: 189 QRS: 44 QRSD: 101 T: 29 QT: 332 QTc: 421 Interpretive Statements SINUS RHYTHM NORMAL ECG COMPARED TO ECG 01/08/2022 13:07:55 NO SIGNIFICANT CHANGES Electronically Signed On 05-07-2022 10:24:32 CDT by James Jones M.D.
--- NOTE | 2022-05-07 08:57 | ED.ABDPAIN ---
HPI - Abdominal Pain General Chief Complaint: Chest Pain Stated Complaint: chest pain Time Seen by Provider: 05/07/22 08:54 History of Present Illness HPI narrative: This is a 77-year-old male no significant past medical history, presents to the emergency department complaining of abdominal pain. He describes pain as dull, 8 out of 10, not radiating, persistent, not associated with nausea or vomiting. He states the pain came on without provocation. The pain is exacerbated by direct pressure to the abdomen, he forced himself to dry vomit once which improved the pain for short period of time. He states he is passing gas and bowel movements without blood. denies recent trauma new or foul-tasting/poorly cooked foods or other obvious cause. Related Data Allergies Allergy/AdvReac Type Severity Reaction Status Date / Time No Known Allergies Allergy Verified 05/07/22 08:43 Review of Systems Review of Systems: CONSTITUTIONAL: +chills Denies fever, or sweats. EYES: Denies visual changes, redness, or discharge. ENT: Denies rhinorrhea, congestion, sore throat, or otalgia. CARDIOVASCULAR: Denies chest pain, palpitations, or edema. RESPIRATORY: Denies cough or dyspnea. GASTROINTESTINAL: +abdominal pain, Denies nausea, vomiting, or diarrhea. GENITOURINARY: Denies dysuria or hematuria. SKIN: Denies rash or itching. MUSCULOSKELETAL: Denies back pain, joint pain, or myalgia. NEUROLOGIC: Denies headache, numbness, dizziness, or weakness. PSYCHIATRIC: Denies anxiety or depression. [facility] Past Medical History Medical History (Updated 05/07/22 @ 18:47 by Blair Wiggins MD) Abnormal fasting glucose Fasting glucose normal at 97 with hemoglobin A1c 5.9 on 11/04/2021 Arthritis of right knee Benign paroxysmal positional vertigo due to bilateral vestibular disorder Carpal tunnel syndrome Chronic kidney disease (CKD) stage G3b/A2, moderately decreased glomerular filtration rate (GFR) between 30-44 mL/min/1.73 square meter and albuminuria creatinine ratio between 30-299 mg/g BUN 35 with creatinine 1.59 with GFR stable at 42 on 11/04/2021. BUN 28 with creatinine 1.3 on 01/08/2022. Chronic low back pain with right-sided sciatica Chronic neck pain Coronary artery disease De Quervain's tenosynovitis, left Essential (primary) hypertension Gouty arthritis of right great toe Hypogonadism male testosterone 265 with free testosterone 32.7 on 11/04/2021 Mixed hyperlipidemia total cholesterol 165 with triglycerides elevated at 318 with HDL low at 28 and LDL 95 on 11/04/2021 Right knee pain Spinal stenosis, lumbar region with neurogenic claudication Trigger finger of right thumb Surgical History Surgical History (Updated 05/07/22 @ 17:31 by Yolande Welch PA-C) History of carpal tunnel release History of colonoscopy with polypectomy History of tonsillectomy Status post trigger finger release Family History Family History Father Patient's father is , Onset Age: 65 Family history of emphysema Son COPD (chronic obstructive pulmonary disease) Social History Social History (Updated 05/07/22 @ 17:33 by Yolande Welch PA-C) Social History: Surrogate decision maker: Garo Pelletier, son. Code status: Full code. Smoking status: Former smoker Additional smoking assessment comments: Quit in 1963. Alcohol intake: current Drinks per week: 6 Substance use: never Occupation/Education: retired Additional occupation/education comments: [email or web address]. Spiritual care concerns: No Exam Narrative: GENERAL: Well-appearing, well-nourished, in moderate distress due to pain HEAD: Normocephalic, atraumatic. EYES: PERRLA and EOMI. ENT: Nares clear, no rhinorrhea or epistaxis. Mucous membranes moist. Oropharynx without tonsillar hypertrophy exudate or other lesions. NECK: Supple. No adenopathy or masses. No carotid bruits or JVD CHEST: Clear to auscultation.
[2022-05-07] MEDS: ASPIRIN 81 MG CHEWABLE TABLET 324 MG PO (09:07)
[2022-05-07] MEDS: MORPHINE SULFATE (*CRX) 4 MG/ML INJ 6 MG IV PUSH (09:08)
[2022-05-07] MEDS: SODIUM CHLORIDE 0.9% IV 1,000 ML 999 ML IV CONT (09:08)
[2022-05-07 09:13] LABS: Basophils Absolute Auto 0.1 K/mm3 (0.0-0.1); Basophils Percent Auto 0.6 % (0.2-1.2); Eosinophils Absolute Auto 0.1 K/mm3 (0-0.3); Eosinophils Percent Auto 0.9 % (0-4.4); Hematocrit 54.3 % (42.0-52.0); Hemoglobin 17.7 g/dL (14.0-18.0); Immature Granulocyte Absolute 0.04 K/mm3 (0.00-0.031); Immature Granulocyte Percent A 0.5 % (0-0.5); Lymphocytes Absolute Auto 0.91 K/mm3 (0.9-3.2); Lymphocytes Percent Auto 11.2 % (18.3-44.2); Mean Corpuscular HGB Conc 32.6 g/dl (32-36); Mean Corpuscular Hemoglobin 30.3 pg (26-34); Mean Platelet Volume 9.9 fl (7.4-10.4); Monocytes Absolute Auto 2.1 K/mm3 (0.1-0.6); Monocytes Percent Auto 26.3 % (2.6-8.5); Neutrophils Absolute Auto 4.9 K/mm3 (1.3-6.7); Neutrophils Percent Auto 60.5 % (45.5-73.1); Platelet Count Result 210 k/mm3 (150-375); Red Blood Count 5.84 M/mm3 (4.6-6.20); Red Cell Distribution Width 14.1 % (11.5-14.5); White Blood Count 8.1 K/mm3 (4.5-10.0)
[2022-05-07] MEDS: ONDANSETRON INJ 4 MG/2 ML VIAL IV PUSH (09:15)
[2022-05-07 09:25] LABS: INR 1.1; Prothrombin Time 13.5 Seconds (11.1-14.7)
[2022-05-07 09:26] LABS: Partial Thromboplastin Time 30.2 SECONDS (22.3-36.8)
[2022-05-07 09:29] LABS: Lactic Acid Reflex 1.1 mmol/L (0.7-2.0)
[2022-05-07 09:32] LABS: Alanine Aminotransferase 28 U/L (6-50); Albumin Level 4.2 g/dL (3.5-5.1); Alkaline Phosphatase 66 U/L (38-126); Anion Gap 11 mmol/L (8-16); Aspartate Amino Transferase 25 U/L (17-59); Bilirubin,Total 1.9 mg/dL (0.2-1.3); Blood Urea Nitrogen 18 mg/dL (9-20); Calcium 8.4 mg/dL (8.4-10.2); Carbon Dioxide 27 mmol/L (22-30); Chloride 97 mmol/L (98-107); Estimated CRCL calculation 59 ml/min; Estimated Glomerular Filt Rate 59; Glucose 139 mg/dL (65-110); Lipase 55 U/L (23-300); Potassium 4.2 mmol/L (3.4-5.0); Sodium 135 mmol/L (137-145)
[2022-05-07 09:40] LABS: Troponin I 0.015 ng/mL (0.000-0.034)
[2022-05-07] MEDS: LACTULOSE 20 GM/30 ML UDC PO (11:19)
[2022-05-07 12:14] LABS: Troponin I 0.012 ng/mL (0.000-0.034)
[2022-05-07] MEDS: MORPHINE SULFATE (*CRX) 4 MG/ML INJ IV PUSH ×2 (12:43→22:42)
--- NOTE | 2022-05-07 17:40 | PM.IMHP ---
H&P: HPI History of Present Illness Date/Time: 05/07/22 17:40 Chief Complaint: Abdominal pain. Narrative: This is a pleasant 77-year-old male with hypertension and hyperlipidemia who presented to the ED from home for evaluation of abdominal pain. For the last several days he has been experiencing diffuse abdominal pain which he has difficulties describing. His stomach is bloated and distended and he has been experiencing nausea. Last night he induced emesis which seemed to help his symptoms for only a short period of time. The pain is consistent but seems to be worse with direct pressure to the abdomen and movement. He has not had a good bowel movement this week which is very unusual for him and he has only been passing small amounts of hard stool. He has thus far attributed his symptoms to eating a lot of fried foods the last 4 days as he has had numerous birthday celebrations. CT of the abdomen pelvis today showed dilated small bowel with air-fluid levels and nondilated ascending and transverse colon with fluid levels consistent with possible enterocolitis however partial small-bowel obstruction or ileus is not excluded. He was given lactulose and an enema in the emergency department and he has only put out a small amount of brownish liquid. At the time my evaluation he feels a bit better after receiving antibiotics and antiemetics. He denies fever but he has had some chills. He has not had any vomiting aside from the episode of self-induced emesis. He has not had overt chest pain but has some discomfort in the lower chest due to abdominal distension. He has never had similar symptoms. No history of abdominal surgery. Review of Systems Review of Systems: Twelve systems were reviewed. No cold or flu symptoms. No sick contacts. No recent travel. No recent antibiotic use. No hematemesis, melena, or hematochezia. No chest or pleuritic pain. No palpitations. No overt shortness of breath though he does have difficulties taking in a deep breath as it exaggerates his pain. As documented, all other systems were reviewed and are negative. [facility] Past Medical History Medical History (Updated 05/07/22 @ 22:52 by Yolande Welch PA-C) Abnormal fasting glucose Fasting glucose normal at 97 with hemoglobin A1c 5.9 on 11/04/2021. Arthritis of right knee Benign paroxysmal positional vertigo due to bilateral vestibular disorder Chronic kidney disease (CKD) stage G3b/A2, moderately decreased glomerular filtration rate (GFR) between 30-44 mL/min/1.73 square meter and albuminuria creatinine ratio between 30-299 mg/g BUN 35 with creatinine 1.59 with GFR stable at 42 on 11/04/2021. BUN 28 with creatinine 1.3 on 01/08/2022. Chronic low back pain with right-sided sciatica Chronic neck pain Coronary artery disease De Quervain's tenosynovitis, left Essential (primary) hypertension Gouty arthritis of right great toe Hypogonadism male testosterone 265 with free testosterone 32.7 on 11/04/2021 Mixed hyperlipidemia total cholesterol 165 with triglycerides elevated at 318 with HDL low at 28 and LDL 95 on 11/04/2021 Right knee pain Spinal stenosis, lumbar region with neurogenic claudication Trigger finger of right thumb Surgical History Surgical History History of carpal tunnel release History of colonoscopy with polypectomy History of tonsillectomy Status post trigger finger release Family History Family History Father Patient's father is , Onset Age: 65 Family history of emphysema Son COPD (chronic obstructive pulmonary disease) Social History Social History Social History: Surrogate decision maker: Garo Pelletier, son. Code status: Full code. Smoking status: Former smoker Additional smoking assessment comments: Quit in 1963. Alcohol intake: current Drinks per week:
[2022-05-07] MEDS: LACTATED RINGERS 1,000 ML 125 ML IV CONT (19:04)
--- NOTE | 2022-05-07 19:30 | ADMGEN ---
This patient, Keshav Pelletier, was admitted to Medical Room 254-01. Patient/family oriented to hospital policies and general routines including ID bracelet, bed and alarms, visiting hours, pain management, procedures, bathroom and other care routines, personal items, smoking policy, room service/diet, and visiting hours. Information on how to activate the Rapid Response Team has been discussed. Patient/Family are encouraged to report perceived risks to care and to ask questions if they do not understand what they are told or what they should do.
[2022-05-08] VITALS (8 sets, daily range): BP systolic 118–142; BP diastolic 65–81; PULSE 71–89; RESP 16–24; TEMP 36.1–36.9; O2SAT 92–96
[2022-05-08] MEDS: LACTATED RINGERS 1,000 ML 125 ML IV CONT ×2 (03:05→22:00)
[2022-05-08 06:22] LABS: Basophils Absolute Auto 0.1 K/mm3 (0.0-0.1); Basophils Percent Auto 0.8 % (0.2-1.2); Eosinophils Absolute Auto 0.2 K/mm3 (0-0.3); Eosinophils Percent Auto 3.3 % (0-4.4); Hematocrit 49.3 % (42.0-52.0); Hemoglobin 15.4 g/dL (14.0-18.0); Immature Granulocyte Absolute 0.03 K/mm3 (0.00-0.031); Immature Granulocyte Percent A 0.5 % (0-0.5); Lymphocytes Absolute Auto 1.22 K/mm3 (0.9-3.2); Mean Corpuscular HGB Conc 31.2 g/dl (32-36); Mean Corpuscular Hemoglobin 29.9 pg (26-34); Mean Corpuscular Volume 95.7 fl (80-100); Mean Platelet Volume 10.2 fl (7.4-10.4); Monocytes Absolute Auto 1.9 K/mm3 (0.1-0.6); Monocytes Percent Auto 31.5 % (2.6-8.5); Neutrophils Absolute Auto 2.7 K/mm3 (1.3-6.7); Neutrophils Percent Auto 43.9 % (45.5-73.1); Platelet Count Result 205 k/mm3 (150-375); Red Blood Count 5.15 M/mm3 (4.6-6.20); Red Cell Distribution Width 14.3 % (11.5-14.5); White Blood Count 6.1 K/mm3 (4.5-10.0)
[2022-05-08 06:38] LABS: Anion Gap 9 mmol/L (8-16); Blood Urea Nitrogen 20 mg/dL (9-20); Calcium 7.7 mg/dL (8.4-10.2); Carbon Dioxide 26 mmol/L (22-30); Chloride 99 mmol/L (98-107); Estimated CRCL calculation 54 ml/min; Estimated Glomerular Filt Rate 54; Glucose 110 mg/dL (65-110); Potassium 4.5 mmol/L (3.4-5.0); Sodium 134 mmol/L (137-145)
[2022-05-08 08:32] LABS: Alanine Aminotransferase 19 U/L (6-50); Albumin Level 3.7 g/dL (3.5-5.1); Alkaline Phosphatase 48 U/L (38-126); Aspartate Amino Transferase 23 U/L (17-59); Bilirubin,Total 1.7 mg/dL (0.2-1.3)
[2022-05-08 08:59] LABS: IFOB Positive Control Positive; Immunochemical Fecal Occult Bl Positive (N)
--- NOTE | 2022-05-08 11:35 | PM.CNGS ---
Assessment and Plan Assessment and plan (1) Partial obstruction of small intestine: Code(s): K56.600 - Partial intestinal obstruction, unspecified as to cause Status: Acute Assessment and Plan: Exam benign today, + bowel function, will start diet and advance as tolerated, continue bowel regimen, encourage out of bed (2) Obesity (BMI 30.0-34.9): Code(s): E66.9 - Obesity, unspecified Status: Acute Assessment and Plan: dietary and lifestyle modifications History of Present Illness Consult details Consult date: 05/08/22 Reason for consult: abdominal pain Requesting physician: Alyx Knowles PA-C Narrative: The patient is a 77-year-old male presenting to the emergency department complaining of diffuse abdominal pain. Patient reports that the pain has been present over the last few days and progressively worsening. The patient reports that the pain is crampy and intermittent. The patient reports associated nausea and 1 episode of emesis. The patient reports he has been very distended and full, having very little appetite. The patient reports that he has been constipated and having small hard stools. The patient denies previous episodes. Review of Systems Constitutional: Constitutional: Reports as per HPI, Reports anorexia, Reports chills, Reports fatigue, Denies fever(s), Denies increased appetite, Reports lethargy, Reports poor appetite, Reports weakness, Denies weight gain and Denies weight loss Eyes: Eyes: Reports no additional eye complaints ENT: Reports system reviewed and no additional complaints, except as documented Cardiovascular: Cardiovascular: Reports no additional cardiovascular complaints Respiratory: Respiratory: Reports no additional respiratory complaints Gastrointestinal: Gastrointestinal: Reports as per HPI, Reports abdominal pain, Reports bloating, Reports change in bowel habits, Reports change in stool character, Reports constipation, Reports GI cramping, Reports early satiety, Reports nausea and Reports vomiting Genitourinary: Genitourinary: Reports no additional male genitourinary complaints Musculoskeletal: Musculoskeletal: Reports no additional musculoskeletal complaints Integumentary/Breasts: Skin/Breast: Reports system reviewed and no additional complaints, except as docu Neurologic: Reports system reviewed and no additional complaints, except as documented Psychiatric: Psychiatric: Reports no additional psychiatric complaints Endocrine: Endocrine: Reports no additional endocrine complaints Hematologic/Lymphatic: Hematologic/Lymphatic: Reports no additional hematologic/lymphatic complaints Allergic/Immunologic: Allergic/Immunologic: Reports no additional allergic/immunologic complaints PMFSH Past Medical History Medical History Abnormal fasting glucose Fasting glucose normal at 97 with hemoglobin A1c 5.9 on 11/04/2021. Arthritis of right knee Benign paroxysmal positional vertigo due to bilateral vestibular disorder Chronic kidney disease (CKD) stage G3b/A2, moderately decreased glomerular filtration rate (GFR) between 30-44 mL/min/1.73 square meter and albuminuria creatinine ratio between 30-299 mg/g BUN 35 with creatinine 1.59 with GFR stable at 42 on 11/04/2021. BUN 28 with creatinine 1.3 on 01/08/2022. Chronic low back pain with right-sided sciatica Chronic neck pain Coronary artery disease De Quervain's tenosynovitis, left Essential (primary) hypertension Gouty arthritis of right great toe Hypogonadism male testosterone 265 with free testosterone 32.7 on 11/04/2021 Mixed hyperlipidemia total cholesterol 165 with triglycerides elevated at 318 with HDL low at 28 and LDL 95 on 11/04/2021 Right knee pain Spinal stenosis, lumbar region with neurogenic claudication Trigger finger of right thumb Surgical History Surgical History History of carpa
--- NOTE | 2022-05-08 12:48 | PM.IMPN ---
Progress Note: A&P Assessment and Plan (1) Partial obstruction of small intestine: Code(s): K56.600 - Partial intestinal obstruction, unspecified as to cause Status: Acute Assessment and Plan: Partial obstruction versus ileus. CT a/p showed dilated small bowel with air-fluid levels and nondilated ascending and transverse colon with fluid levels Appreciate general surgery consultation Bowel function returned Advance diet as tolerated Begin bowel regimen with MiraLax daily and Colace twice a day (2) Occult blood positive stool: Code(s): R19.5 - Other fecal abnormalities Status: Acute Assessment and Plan: Patient noted to have dark stool today by nursing staff. Stool was positive for occult blood Patient reports no prior history of GI bleeding. States stools are normally brown in color and denies prior red blood per rectum. H&H stable. No evidence of active bleeding Patient reports last colonoscopy was 5 years ago, no issues at that time. Has not had an EGD Stop diclofenac Begin Protonix 40 mg daily Monitor H&H Discussed GI evaluation with patient and family. Request further evaluation be deferred at this time and will follow-up as an outpatient. (3) Dehydration: Code(s): E86.0 - Dehydration Status: Acute Assessment and Plan: Secondary to poor oral intake, nausea, vomiting Patient has been rehydrated with IV fluids Continue gentle IV fluids until patient is better tolerating diet Encourage p.o. fluid intake (4) Essential (primary) hypertension: Code(s): I10 - Essential (primary) hypertension Status: Acute Assessment and Plan: Blood pressures Reviewed and have been well controlled. Last BP 118/65 Resume home lisinopril Monitor BP trends Subjective Date/time seen: 05/08/22 12:48 Interval history: Date of service: 05/08/2022 Keshav Pelletier Is a 77-year-old male with a history of CKD, CAD, hypertension, and arthritis who is seen in follow-up for partial small-bowel obstruction. He is feeling a lot better today. He does not have abdominal pain at this time but does endorse some soreness in his abdominal wall muscles. He has had 3 loose stools today. 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 He denies any bright red blood in his stool. Denies blood in his urine. Denies nausea, vomiting, fever, chills, dizziness, lightheadedness. Tolerating liquids. Denies shortness breath, cough, chest pain, palpitations. Review of Systems Review of Systems: All systems reviewed & are unremarkable except as noted in HPI and below Exam Narrative: General: Well-nourished, well-appearing 77-year-old male, sitting up in bed, comfortable, NARD Neuro: awake, alert and oriented x4, speech clear, no focal neuro deficits noted HEENMT: normocephalic, atraumatic, EOMI, sclerae anicteric Respiratory: clear to auscultation bilaterally, nonlabored breathing Cardio: regular rate, regular rhythm with S1-S2 Abdomen: Protuberant, normoactive bowel sounds, soft, nontender to palpation Extremities: no edema, erythema, or tenderness to palpation, DP pulses 2+ bilaterally Skin: no rashes or lesions, warm and dry Psych: appropriate mood and affect, judgment and insight intact Objective Data Vital Signs Vital Signs: Vital Signs - 24 hr 05/07/22 16:22 05/07/22 18:57 05/07/22 19:04 Temperature Pulse Rate 103 H 100 100 Respiratory Rate 22 H 22 H 20 Blood Pressure 141/82 H 131/78 Pulse Oximetry 95 93 93 Oxygen Delivery Fraction of Inspired Oxygen 05/07/22 20:01 05/07/22 19:43 05/07/22 20:00 Temperature 99.8 F H 99.3 F Pulse Rate 106 H 101 H Respiratory Rate 20 20 Blood Pressure 141/85 H 137/71 Pulse Oximetry 93 91 Oxygen Delivery Room Air Fraction of Inspired Oxygen 05/07/22 23:31 05/07/22 23:32 05/08/22 00:00 Temperature 98.5 F Pulse Rate 99 88
[2022-05-08] MEDS: GABAPENTIN 400 MG CAPSULE 1200 MG PO (14:16)
[2022-05-08] MEDS: PANTOPRAZOLE 40 MG TABLET PO (14:16)
[2022-05-08] MEDS: MORPHINE SULFATE (*CRX) 4 MG/ML INJ 2 MG IV PUSH ×2 (16:02→19:12)
[2022-05-08] MEDS: ONDANSETRON INJ 4 MG/2 ML VIAL IV PUSH (16:03)
[2022-05-09] VITALS (7 sets, daily range): BP systolic 123–131; BP diastolic 64–83; PULSE 74–87; RESP 18–20; TEMP 36.6–37.4; O2SAT 92–96
[2022-05-09] MEDS: MORPHINE SULFATE (*CRX) 4 MG/ML INJ 2 MG IV PUSH (00:14)
[2022-05-09 05:38] LABS: Anion Gap 6 mmol/L (8-16); Blood Urea Nitrogen 16 mg/dL (9-20); Calcium 7.6 mg/dL (8.4-10.2); Carbon Dioxide 26 mmol/L (22-30); Chloride 102 mmol/L (98-107); Estimated CRCL calculation 64 ml/min; Estimated Glomerular Filt Rate > 60; Glucose 99 mg/dL (65-110); Potassium 4.3 mmol/L (3.4-5.0); Sodium 134 mmol/L (137-145)
[2022-05-09 06:28] LABS: Hematocrit 46.1 % (42.0-52.0); Hemoglobin 14.5 g/dL (14.0-18.0); Mean Corpuscular HGB Conc 31.5 g/dl (32-36); Mean Corpuscular Hemoglobin 29.5 pg (26-34); Mean Corpuscular Volume 93.9 fl (80-100); Platelet Count Result 214 k/mm3 (150-375); Red Blood Count 4.91 M/mm3 (4.6-6.20); Red Cell Distribution Width 14.2 % (11.5-14.5); White Blood Count 7.2 K/mm3 (4.5-10.0)
[2022-05-09] MEDS: GABAPENTIN 400 MG CAPSULE 1200 MG PO ×3 (08:48→21:02)
[2022-05-09] MEDS: ATORVASTATIN 10 MG TABLET PO (08:49)
[2022-05-09] MEDS: LACTATED RINGERS 1,000 ML 125 ML IV CONT ×2 (08:49→13:16)
[2022-05-09] MEDS: PANTOPRAZOLE 40 MG TABLET PO (08:49)
[2022-05-09] MEDS: lisinopriL 20 MG TABLET PO (08:49)
[2022-05-09 09:09] LABS: Alanine Aminotransferase 18 U/L (6-50); Albumin Level 3.2 g/dL (3.5-5.1); Alkaline Phosphatase 46 U/L (38-126); Aspartate Amino Transferase 25 U/L (17-59); Bilirubin,Total 1.2 mg/dL (0.2-1.3)
--- NOTE | 2022-05-09 10:21 | PM.PNGS ---
Progress Note: A&P Assessment and Plan (1) Partial obstruction of small intestine: Code(s): K56.600 - Partial intestinal obstruction, unspecified as to cause Status: Acute Assessment and Plan: exam benign this am, restart clears, encourage OOB Subjective Subjective Date/Time Seen: 05/09/22 10:21 pt reports recurrent pain, dist after solid foods yesterday, feels much improved this am Review of Systems Review of Systems: All systems reviewed & are unremarkable except as noted in HPI and below Exam Const: General: cooperative, comfortable and no acute distress Resp: Auscultation: clear to auscultation bilaterally Cardio: Rate: regular rate Rhythm: regular rhythm GI: Inspection: normal to inspection and non-distended GI Palp: No abdominal tenderness, Yes Soft to palpation, No Tenderness to palpation present (GI), No Guarding due to palpation present (GI) and No Rigid due to palpation Objective Data Vital Signs Vital Signs: Vital Signs - 24 hr 05/08/22 13:44 05/08/22 17:20 05/08/22 19:35 Temperature 36.3 C L 36.1 C L 36.7 C Pulse Rate 71 77 81 Respiratory Rate 20 16 24 H Blood Pressure 131/73 142/72 H 134/80 Pulse Oximetry 96 92 92 Oxygen Delivery 05/08/22 20:15 05/09/22 00:00 05/08/22 22:50 Temperature 36.6 C Pulse Rate 87 87 Respiratory Rate 20 Blood Pressure 124/64 Pulse Oximetry 92 93 Oxygen Delivery Room Air CPAP 05/08/22 22:50 05/09/22 04:00 Temperature 36.6 C Pulse Rate 78 Respiratory Rate 20 Blood Pressure 123/67 Pulse Oximetry 93 94 Oxygen Delivery Room Air Intake/Output Intake/Output: Intake & Output 05/06/22 05/07/22 05/08/22 05/09/22 23:59 23:59 23:59 23:59 Intake Total 1000 2600 1050 Output Total 300 Balance 1000 2600 750 Meds/Results Medications: Active Medications Generic Name Dose Route Start Last Admin Trade Name Freq PRN Reason Stop Dose Admin Atorvastatin Calcium 10 mg 05/09/22 09:00 05/09/22 08:49 Atorvastatin 10 Mg Tablet PO 10 mg DAILY GENIA Administration Furosemide 20 mg 05/08/22 13:05 Furosemide 20 Mg Tablet PO DAILY PRN edema Gabapentin 1,200 mg 05/08/22 13:00 05/09/22 08:48 Gabapentin 400 Mg Capsule PO 1,200 mg TID GENIA Administration Lactated Ringer's 1,000 mls @ 75 mls/hr 05/07/22 17:35 05/09/22 08:49 Lr - Lactated Ringers Iv IV CONT 125 mls/hr .[id number] GENIA Administration Lisinopril 20 mg 05/09/22 09:00 05/09/22 08:49 Lisinopril 20 Mg Tablet PO 20 mg DAILY GENIA Administration Miscellaneous Information 1 each 05/08/22 00:01 Testosterone Inj Q2 Weeks. Nonformulary. When Due? Hold While Hospitalized? XX 06/07/22 00:00 CLARIFY GENIA Morphine Sulfate 2 mg 05/07/22 22:57 05/09/22 00:14 Morphine Sulfate (*Crx) 4 Mg/Ml Inj IV PUSH 2 mg Q4H PRN Administration Pain Rated 7-10 Non-Formulary Medication 200 mg 05/22/22 09:00 Testosterone Cypionate IM 06/21/22 08:59 [id number] GENIA Ondansetron HCl 4 mg 05/08/22 14:54 05/08/22 16:03 Ondansetron Inj 4 Mg/2 Ml Vial IV PUSH 4 mg Q6H PRN Administration Nausea And Vomiting Pantoprazole Sodium 40 mg 05/08/22 13:05 05/09/22 08:49 Pantoprazole 40 Mg Tablet PO 40 mg QAM GENIA Administration Radiology Results: ITS Impressions Chest X-Ray 05/07/22 09:32 IMPRESSION: Mild atelectasis at the right lung base Abdomen/Pelvis CT 05/07/22 10:11 IMPRESSION: Dilated small bowel with air-fluid levels, nondilated ascending and transverse colon with fluid levels. Consider enterocolitis. Partial small bowel obstruction is not excluded Diverticulosis of the colon; no evidence of diverticulitis. Labs Labs: Laboratory Results - last 24 hr 05/09/22 05/09/22 05/09/22 05:03 05:05 05:05 WBC 7.2 RBC 4.91 Hgb 14.5 Hct 46.1 MCV 93.9 MCH 29.5 MCHC 31.5 L RDW 14.2 Plt Count 214 MPV 10.0 Sodium Cancelled 13
--- NOTE | 2022-05-09 12:18 | PM.IMPN ---
Progress Note: A&P Assessment and Plan (1) Partial obstruction of small intestine: Code(s): K56.600 - Partial intestinal obstruction, unspecified as to cause Status: Acute Assessment and Plan: Partial obstruction versus ileus. CT a/p showed dilated small bowel with air-fluid levels and nondilated ascending and transverse colon with fluid levels Appreciate general surgery consultation Bowel function returned Tolerating clear liquid diet KUB completed this morning, awaiting interpretation (2) Occult blood positive stool: Code(s): R19.5 - Other fecal abnormalities Status: Acute Assessment and Plan: Patient noted to have dark stool by nursing staff. Stool was positive for occult blood Patient reports no prior history of GI bleeding. States stools are normally brown in color and denies prior bright red blood per rectum. H&H stable. No evidence of active bleeding Patient reports last colonoscopy was 5 years ago, no issues at that time. Has not had an EGD Stop diclofenac Continue Protonix 40 mg daily Monitor H&H Discussed GI evaluation with patient and family. Initially requested outpatient follow-up, however today reports like to proceed with GI consultation as he will remain hospitalized. Spoke with Dr. Cornell. Plan for EGD tomorrow. Clear liquid diet today. Consult placed to GI, recommendations appreciated. (3) Dehydration: Code(s): E86.0 - Dehydration Status: Acute Assessment and Plan: Secondary to poor oral intake, nausea, vomiting Patient has been rehydrated with IV fluids Continue gentle IV fluids until diet is advanced Encourage p.o. fluid intake (4) Essential (primary) hypertension: Code(s): I10 - Essential (primary) hypertension Status: Acute Assessment and Plan: Blood pressures reviewed and have been well controlled. Last BP 131/83 Continue home lisinopril Monitor BP trends Subjective Date/time seen: 05/09/22 12:18 Interval history: Date of service: 05/09/2022 Keshav Pelletier Is a 77-year-old male with a history of CKD, CAD, hypertension, and arthritis who is seen in follow-up for partial small-bowel obstruction. He feels his abdomen is softer today and he has no bloating. He denies abdominal pain. No nausea or vomiting. Denies hematemesis. He has not had a bowel movement today. He denies urinary symptoms. No shortness breath, cough, chest pain. Review of Systems Review of Systems: All systems reviewed & are unremarkable except as noted in HPI and below Exam Narrative: General: Well-nourished, well-appearing 77-year-old male, sitting up in bed, comfortable, NARD Neuro: awake, alert and oriented x4, speech clear, no focal neuro deficits noted HEENMT: normocephalic, atraumatic, EOMI, sclerae anicteric Respiratory: clear to auscultation bilaterally, nonlabored breathing Cardio: regular rate, regular rhythm with S1-S2 Abdomen: Protuberant, normoactive bowel sounds, soft, nontender to palpation Extremities: no edema, erythema, or tenderness to palpation, DP pulses 2+ bilaterally Skin: no rashes or lesions, warm and dry Psych: appropriate mood and affect, judgment and insight intact Objective Data Vital Signs Vital Signs: Vital Signs - 24 hr 05/08/22 13:44 05/08/22 17:20 05/08/22 19:35 Temperature 97.4 F L 97 F L 98.1 F Pulse Rate 71 77 81 Respiratory Rate 20 16 24 H Blood Pressure 131/73 142/72 H 134/80 Pulse Oximetry 96 92 92 Oxygen Delivery 05/08/22 20:15 05/09/22 00:00 05/08/22 22:50 Temperature 97.9 F Pulse Rate 87 87 Respiratory Rate 20 Blood Pressure 124/64 Pulse Oximetry 92 93 Oxygen Delivery Room Air CPAP 05/08/22 22:50 05/09/22 04:00 05/09/22 08:00 Temperature 98 F 98.4 F Pulse Rate 78 81 Respiratory Rate 20 20 Blood Pressure 123/67 131/83 Pulse Oximetry 93 94 92 Oxygen Delivery Room Air 05/09/22 08:30 Temperature Pulse Rate
[2022-05-09] MEDS: BISACODYL 5 MG TABLET EC 20 MG PO (13:14)
[2022-05-09] MEDS: polyethylene glycoL 3350 238 GM BOTTLE PO (16:18)
[2022-05-10] VITALS (11 sets, daily range): BP systolic 118–161; BP diastolic 64–87; PULSE 65–81; RESP 15–23; TEMP 36.5–37.2; O2SAT 91–97
[2022-05-10] MEDS: LACTATED RINGERS 1,000 ML 125 ML IV CONT (02:34)
[2022-05-10 05:24] LABS: Hematocrit 45.9 % (42.0-52.0); Hemoglobin 14.5 g/dL (14.0-18.0); Mean Corpuscular HGB Conc 31.6 g/dl (32-36); Mean Corpuscular Hemoglobin 29.7 pg (26-34); Mean Corpuscular Volume 93.9 fl (80-100); Mean Platelet Volume 9.4 fl (7.4-10.4); Platelet Count Result 235 k/mm3 (150-375); Red Blood Count 4.89 M/mm3 (4.6-6.20); Red Cell Distribution Width 14.3 % (11.5-14.5); White Blood Count 9.4 K/mm3 (4.5-10.0)
[2022-05-10 05:35] LABS: Anion Gap 7 mmol/L (8-16); Blood Urea Nitrogen 11 mg/dL (9-20); Calcium 7.9 mg/dL (8.4-10.2); Carbon Dioxide 28 mmol/L (22-30); Chloride 101 mmol/L (98-107); Estimated CRCL calculation 58 ml/min; Estimated Glomerular Filt Rate 59; Glucose 109 mg/dL (65-110); Potassium 3.8 mmol/L (3.4-5.0); Sodium 136 mmol/L (137-145)
--- NOTE | 2022-05-10 06:34 | WPDGICN ---
Assessment and Plan Assessment and plan (1) Occult blood positive stool: Code(s): R19.5 - Other fecal abnormalities Status: Acute Assessment and Plan: He has not had gastrointestinal bleeding in the past. He may every not have had a polyp in the past. That last colonoscopy was done in [place]. He has never had an EGD, he has no history of ulcers or severe reflux. He denies dysphagia (2) Abdominal pain: Code(s): R10.9 - Unspecified abdominal pain Status: Acute Assessment and Plan: the pain he states was always worst on the left side. He is still uncomfortable on that side and tender on palpation. (3) Abdominal bloating: Code(s): R14.0 - Abdominal distension (gaseous) Status: Acute Assessment and Plan: He states that he remains more distended than normal. He states that this all began just prior to his admission. He does have tympany on exam is morning which may be due in part to the fact that he is just now came off of his CPAP which probably contributes somewhat to intestinal air. It is felt that he had a partial small-bowel obstruction, although he does not have any risk factors that would explain that. (4) Arthritis of right knee: Code(s): M17.11 - Unilateral primary osteoarthritis, right knee Status: Chronic Assessment and Plan: he has chronic arthritis in his knee. He also has had gout in a toll has spinal stenosis. For that he uses diclofenac daily. Plan EGD with possible biopsy or dilatation or cautery.Colonoscopy with possible biopsy or polypectomy or cautery or injection of substances. GI Consult Note Consult date/time: 05/10/22 06:34 HPI: Keshav Pelletier is a 77 year old male with chronic arthritis, chronic kidney disease,Who was admitted several days ago with signs symptoms of intestinal obstruction. He had extensive abdominal distension, and he was nauseated. He induced vomiting once but otherwise had not been vomiting. He also became constipated not having had a bowel movement of any decent sort for several days. A CT scan showed dilated small bowel with air-fluid levels. I have reviewed those films I do not see a distinct cut off or transition point.He has had no prior abdominal surgery. He had not been losing weight lately. His appetite has been good he denies dysphagia, heartburn, or any chronic abdominal pain. He had a colonoscopy about fiber 6 years ago in [place] and he believes it was normal. He does take diclofenac and this was discontinued yesterday. NG tube was considered. He was seen by surgery. Was felt that he did not require surgery. He was started on clear liquids. He had 1 meal of solid foods such as rice, and his symptoms began all over again. He therefore went back on clear liquids. He has been found to have a dark stool and Hemoccult is positive. Hemoglobin remains 14.5 Review of Systems Review of Systems: All systems reviewed & are unremarkable except as noted in HPI and below [facility] Past Medical History Medical History Abnormal fasting glucose Fasting glucose normal at 97 with hemoglobin A1c 5.9 on 11/04/2021. Arthritis of right knee Benign paroxysmal positional vertigo due to bilateral vestibular disorder Chronic kidney disease (CKD) stage G3b/A2, moderately decreased glomerular filtration rate (GFR) between 30-44 mL/min/1.73 square meter and albuminuria creatinine ratio between 30-299 mg/g BUN 35 with creatinine 1.59 with GFR stable at 42 on 11/04/2021. BUN 28 with creatinine 1.3 on 01/08/2022. Chronic low back pain with right-sided sciatica Chronic neck pain Coronary artery disease De Quervain's tenosynovitis, left Essential (primary) hypertension Gouty arthritis of right great toe Hypogonadism male testosterone 265 with free testosterone 32.7 on 11/04/2021 Mixed hyperlipidemia total cholesterol 165 with triglycerides elevated at 318 with
--- NOTE | 2022-05-10 09:56 | PM.PNGS ---
Progress Note: A&P Assessment and Plan (1) Partial obstruction of small intestine: Code(s): K56.600 - Partial intestinal obstruction, unspecified as to cause Status: Acute Assessment and Plan: exam benign, will be getting upper and lower endoscopy per GI today Subjective Subjective Date/Time Seen: 05/10/22 09:56 feels good this am, no issues c clears yesterday, +flatus Review of Systems Review of Systems: All systems reviewed & are unremarkable except as noted in HPI and below Exam Const: General: cooperative, comfortable and no acute distress Resp: Auscultation: clear to auscultation bilaterally Cardio: Rate: regular rate Rhythm: regular rhythm GI: Inspection: normal to inspection and non-distended GI Palp: No abdominal tenderness, Yes Soft to palpation, No Tenderness to palpation present (GI), No Guarding due to palpation present (GI) and No Rigid due to palpation Objective Data Vital Signs Vital Signs: Vital Signs - 24 hr 05/09/22 12:00 05/09/22 16:00 05/09/22 20:00 Temperature 36.9 C 37.4 C 37.2 C Pulse Rate 74 78 85 Respiratory Rate 18 20 20 Blood Pressure 128/77 124/68 130/66 Pulse Oximetry 94 96 96 Oxygen Delivery 05/09/22 21:00 05/09/22 21:00 05/10/22 00:00 Temperature 37.2 C 36.5 C Pulse Rate 85 75 Respiratory Rate 20 18 Blood Pressure 130/66 118/69 Pulse Oximetry 96 91 Oxygen Delivery Room Air 05/10/22 03:49 05/10/22 03:49 Temperature 36.8 C 36.8 C Pulse Rate 71 71 Respiratory Rate 20 20 Blood Pressure 118/64 118/64 Pulse Oximetry 93 93 Oxygen Delivery Intake/Output Intake/Output: Intake & Output 05/07/22 05/08/22 05/09/22 05/10/22 23:59 23:59 23:59 23:59 Intake Total 1000 2600 4030 0 Output Total 300 Balance 1000 2600 3730 0 Meds/Results Medications: Active Medications Generic Name Dose Route Start Last Admin Trade Name Freq PRN Reason Stop Dose Admin Atorvastatin Calcium 10 mg 05/09/22 09:00 05/09/22 08:49 Atorvastatin 10 Mg Tablet PO 10 mg DAILY GENIA Administration Furosemide 20 mg 05/08/22 13:05 Furosemide 20 Mg Tablet PO DAILY PRN edema Gabapentin 1,200 mg 05/08/22 13:00 05/09/22 21:02 Gabapentin 400 Mg Capsule PO 1,200 mg TID GENIA Administration Lactated Ringer's 1,000 mls @ 75 mls/hr 05/07/22 17:35 05/10/22 02:34 Lr - Lactated Ringers Iv IV CONT 125 mls/hr .[id number] GENIA Administration Lisinopril 20 mg 05/09/22 09:00 05/09/22 08:49 Lisinopril 20 Mg Tablet PO 20 mg DAILY GENIA Administration Morphine Sulfate 2 mg 05/07/22 22:57 05/09/22 00:14 Morphine Sulfate (*Crx) 4 Mg/Ml Inj IV PUSH 2 mg Q4H PRN Administration Pain Rated 7-10 Ondansetron HCl 4 mg 05/08/22 14:54 05/08/22 16:03 Ondansetron Inj 4 Mg/2 Ml Vial IV PUSH 4 mg Q6H PRN Administration Nausea And Vomiting Pantoprazole Sodium 40 mg 05/08/22 13:05 05/09/22 08:49 Pantoprazole 40 Mg Tablet PO 40 mg QAM GENIA Administration Radiology Results: ITS Impressions Chest X-Ray 05/07/22 09:32 IMPRESSION: Mild atelectasis at the right lung base Abdomen/Pelvis CT 05/07/22 10:11 IMPRESSION: Dilated small bowel with air-fluid levels, nondilated ascending and transverse colon with fluid levels. Consider enterocolitis. Partial small bowel obstruction is not excluded Diverticulosis of the colon; no evidence of diverticulitis. Abdomen X-Ray 05/09/22 14:24 IMPRESSION: 1. Persistently dilated small bowel, consistent with ileus versus partial obstruction. Labs Labs: Laboratory Results - last 24 hr 05/10/22 05/10/22 04:57 04:57 WBC 9.4 RBC 4.89 Hgb 14.5 Hct 45.9 MCV 93.9 MCH 29.7 MCHC 31.6 L RDW 14.3 Plt Count 235 MPV 9.4 Sodium 136 L Potassium 3.8 Chloride 101 Carbon Dioxide 28 Anion Gap 7 L BUN 11 D Creatinine 1.20 Estim Creat Clear Calc 58 Estimated GFR 59 Glucose 109 Calcium
[2022-05-10] MEDS: lisinopriL 20 MG TABLET PO (10:03)
[2022-05-10] MEDS: LACTATED RINGERS 1,000 ML 150 ML IV CONT (12:33)
--- NOTE | 2022-05-10 12:37 | WPDANESEPPF ---
Anes - Initial Pre Proc Eval Procedure: Operation Date: 05/10/22 15:45 Proposed Procedures p Esophagogastroduodenoscopy & Colonoscopy - Armando Cornell MD Date/Time: 05/10/22 12:37 Surgeon: Alyx Knowles PA-C Pre Op Diagnosis: Partial Small Bowel Obstruction Patient Data Age: 77 Gender: M Height: 1.78 m Weight: 108 kg Last Vital Signs Temp 36.8 C 05/10/22 12:31 Pulse 74 05/10/22 12:31 Resp 18 05/10/22 12:31 BP 140/77 05/10/22 12:31 Pulse Ox 95 05/10/22 12:31 O2 Del Method Room Air 05/10/22 12:31 FiO2 21 05/07/22 23:32 Allergies Allergy/AdvReac Type Severity Reaction Status Date / Time No Known Allergies Allergy Verified 05/10/22 12:28 Home Medications Medication Instructions Recorded Confirmed Type atorvastatin 10 mg tablet 10 mg PO DAILY #90 tabs 12/15/21 05/07/22 Rx gabapentin 600 mg tablet 1,200 mg PO TID #180 tabs 12/15/21 05/07/22 Rx lisinopril 20 mg tablet 20 mg PO DAILY #90 tabs 12/15/21 05/07/22 Rx furosemide 20 mg tablet (Lasix) 20 mg PO DAILY PRN edema #30 tabs 12/24/21 05/07/22 Rx testosterone cypionate 200 mg/mL 200 mg IM [id number] #10 mL 03/10/22 05/07/22 Rx intramuscular oil diclofenac sodium 75 mg 75 mg PO BID 05/07/22 05/07/22 History tablet,delayed release Laboratory Tests 05/10/22 05/10/22 04:57 04:57 WBC 9.4 K/mm3 K/mm3 (4.5-10.0) RBC 4.89 M/mm3 M/mm3 (4.6-6.20) Hgb 14.5 g/dL g/dL (14.0-18.0) Hct 45.9 % % (42.0-52.0) MCV 93.9 fl fl (80-100) MCH 29.7 pg pg (26-34) MCHC 31.6 g/dl L g/dl (32-36) RDW 14.3 % % (11.5-14.5) Plt Count 235 k/mm3 k/mm3 (150-375) MPV 9.4 fl fl (7.4-10.4) Sodium 136 mmol/L L mmol/L (137-145) Potassium 3.8 mmol/L mmol/L (3.4-5.0) Chloride 101 mmol/L mmol/L (98-107) Carbon Dioxide 28 mmol/L mmol/L (22-30) Anion Gap 7 mmol/L L mmol/L (8-16) BUN 11 mg/dL D mg/dL (9-20) Creatinine 1.20 mg/dL mg/dL (0.7-1.3) Estim Creat Clear Calc 58 ml/min ml/min Estimated GFR 59 (59 - ) Glucose 109 mg/dL mg/dL (65-110) Calcium 7.9 mg/dL L mg/dL (8.4-10.2) Patient hx anesthesia problems: none Family hx anesthesia problems: none Results Review: All pre-operative results and documents have been reviewed as part of the pre-operative evaluation. [facility] Past Medical History Medical History Abnormal fasting glucose Fasting glucose normal at 97 with hemoglobin A1c 5.9 on 11/04/2021. Arthritis of right knee Benign paroxysmal positional vertigo due to bilateral vestibular disorder Chronic kidney disease (CKD) stage G3b/A2, moderately decreased glomerular filtration rate (GFR) between 30-44 mL/min/1.73 square meter and albuminuria creatinine ratio between 30-299 mg/g BUN 35 with creatinine 1.59 with GFR stable at 42 on 11/04/2021. BUN 28 with creatinine 1.3 on 01/08/2022. Chronic low back pain with right-sided sciatica Chronic neck pain Coronary artery disease De Quervain's tenosynovitis, left Essential (primary) hypertension Gouty arthritis of right great toe Hypogonadism male testosterone 265 with free testosterone 32.7 on 11/04/2021 Mixed hyperlipidemia total cholesterol 165 with triglycerides elevated at 318 with HDL low at 28 and LDL 95 on 11/04/2021 Right knee pain Spinal stenosis, lumbar region with neurogenic claudication Trigger finger of right thumb Surgical History Surgical History History of carpal tunnel release History of colonoscopy with polypectomy History of tonsillectomy Status post trigger finger release Family History Family History Father Patient's father is , Onset Age: 65 Family history of emphysema Son COPD (chronic obstructive pulmonary disease)
--- NOTE | 2022-05-10 13:11 | PC.NURSE ---
To GI Lab per [ wheelchair], IV [ Saline locked]. Report given to [ Katy].
--- NOTE | 2022-05-10 13:39 | SUR.OPER ---
EGD START: 1317; END: 1319. COLONOSCOPY START: 1325; END: 1339.
--- NOTE | 2022-05-10 14:27 | P.PNIM_ITS ---
Progress Note: A&P Assessment and Plan (1) Partial obstruction of small intestine: Code(s): K56.600 - Partial intestinal obstruction, unspecified as to cause Status: Acute Assessment and Plan: Partial obstruction versus ileus. * CT a/p showed dilated small bowel with air-fluid levels and nondilated ascending and transverse colon with fluid levels * Abdominal x-ray yesterday showed persistently dilated small bowel consistent with ileus vs partial obstruction * Appreciate general surgery consultation * Bowel function returned * Patient NPO today colonoscopy. Advanced to full liquids following colonoscopy. * Continue to advance diet as tolerated. Will need to ultimately be on high- fiber diet (2) Gastritis: Code(s): K29.70 - Gastritis, unspecified, without bleeding Status: Acute Assessment and Plan: Patient noted to have dark stool by nursing staff. Stool was positive for occult blood * Patient reports no prior history of GI bleeding. * H&H stable. No evidence of active bleeding * EGD completed today which demonstrated mild localized gastritis * Diclofenac discontinue * Continue Protonix 40 mg daily * Appreciate gastroenterology consultation (3) Occult blood positive stool: Code(s): R19.5 - Other fecal abnormalities Status: Acute Assessment and Plan: See above * Likely due to gastritis * Colonoscopy completed with no evidence of bleeding. Showed diverticulosis with no perforation, abscess, bleeding, and internal hemorrhoids without bleeding (4) Dehydration: Code(s): E86.0 - Dehydration Status: Resolved Assessment and Plan: Resolved. Secondary to poor oral intake, nausea, vomiting * Patient has been rehydrated with IV fluids * Will discontinue IV fluids at this time as patient is tolerating oral intake * Encourage p.o. fluid intake (5) Essential (primary) hypertension: Code(s): I10 - Essential (primary) hypertension Status: Acute Assessment and Plan: Blood pressures reviewed and have been well controlled. Last BP 145/87 * Continue home lisinopril * Monitor BP trends Subjective Date/time seen: 05/10/22 10:30 Interval history: Date of service: 05/10/2022 Keshav Pelletier Is a 77-year-old male with a history of CKD, CAD, hypertension, and arthritis who is seen in follow-up for partial small-bowel obstruction. He is feeling well today. He denies abdominal pain but states his abdomen is slightly sore to the touch. He states his bloating has gone down significantly. Denies abdominal cramping. Denies nausea, vomiting, fever, or chills. He has been having watery stools today after completing colonoscopy prep. He denies any blood in his stools. He has been NPO today while awaiting EGD and colonoscopy. He denies shortness of breath, cough, chest pain, palpitations, dizziness, lightheadedness, weakness. Review of Systems Review of Systems: All systems reviewed & are unremarkable except as noted in HPI and below Exam Narrative: General: Well-nourished, well-appearing 77-year-old male, sitting up in bed, comfortable, NARD Neuro: awake, alert and oriented x4, speech clear, no focal neuro deficits noted HEENMT: normocephalic, atraumatic, EOMI, sclerae anicteric Respiratory: clear to auscultation bilaterally, nonlabored breathing Cardio: regular rate, regular rhythm with S1-S2 Abdomen: Protuberant, normoactive bowel sounds, soft, nontender to palpation Extremities: no edema, eryt
--- NOTE | 2022-05-10 14:27 | PM.IMPN ---
Progress Note: A&P Assessment and Plan (1) Partial obstruction of small intestine: Code(s): K56.600 - Partial intestinal obstruction, unspecified as to cause Status: Acute Assessment and Plan: Partial obstruction versus ileus. CT a/p showed dilated small bowel with air-fluid levels and nondilated ascending and transverse colon with fluid levels Abdominal x-ray yesterday showed persistently dilated small bowel consistent with ileus vs partial obstruction Appreciate general surgery consultation Bowel function returned Patient NPO today colonoscopy. Advanced to full liquids following colonoscopy. Continue to advance diet as tolerated. Will need to ultimately be on high-fiber diet (2) Gastritis: Code(s): K29.70 - Gastritis, unspecified, without bleeding Status: Acute Assessment and Plan: Patient noted to have dark stool by nursing staff. Stool was positive for occult blood Patient reports no prior history of GI bleeding. H&H stable. No evidence of active bleeding EGD completed today which demonstrated mild localized gastritis Diclofenac discontinue Continue Protonix 40 mg daily Appreciate gastroenterology consultation (3) Occult blood positive stool: Code(s): R19.5 - Other fecal abnormalities Status: Acute Assessment and Plan: See above Likely due to gastritis Colonoscopy completed with no evidence of bleeding. Showed diverticulosis with no perforation, abscess, bleeding, and internal hemorrhoids without bleeding (4) Dehydration: Code(s): E86.0 - Dehydration Status: Resolved Assessment and Plan: Resolved. Secondary to poor oral intake, nausea, vomiting Patient has been rehydrated with IV fluids Will discontinue IV fluids at this time as patient is tolerating oral intake Encourage p.o. fluid intake (5) Essential (primary) hypertension: Code(s): I10 - Essential (primary) hypertension Status: Acute Assessment and Plan: Blood pressures reviewed and have been well controlled. Last BP 145/87 Continue home lisinopril Monitor BP trends Subjective Date/time seen: 05/10/22 10:30 Interval history: Date of service: 05/10/2022 Keshav Pelletier Is a 77-year-old male with a history of CKD, CAD, hypertension, and arthritis who is seen in follow-up for partial small-bowel obstruction. He is feeling well today. He denies abdominal pain but states his abdomen is slightly sore to the touch. He states his bloating has gone down significantly. Denies abdominal cramping. Denies nausea, vomiting, fever, or chills. He has been having watery stools today after completing colonoscopy prep. He denies any blood in his stools. He has been NPO today while awaiting EGD and colonoscopy. He denies shortness of breath, cough, chest pain, palpitations, dizziness, lightheadedness, weakness. Review of Systems Review of Systems: All systems reviewed & are unremarkable except as noted in HPI and below Exam Narrative: General: Well-nourished, well-appearing 77-year-old male, sitting up in bed, comfortable, NARD Neuro: awake, alert and oriented x4, speech clear, no focal neuro deficits noted HEENMT: normocephalic, atraumatic, EOMI, sclerae anicteric Respiratory: clear to auscultation bilaterally, nonlabored breathing Cardio: regular rate, regular rhythm with S1-S2 Abdomen: Protuberant, normoactive bowel sounds, soft, nontender to palpation Extremities: no edema, erythema, or tenderness to palpation, DP pulses 2+ bilaterally Skin: no rashes or lesions, warm and dry Psych: appropriate mood and affect, judgment and insight intact Objective Data Vital Signs Vital Signs: Vital Signs - 24 hr 05/09/22 16:00 05/09/22 20:00 05/09/22 21:00 Temperature 99.3 F 99 F 99 F Pulse Rate 78 85 85 Respiratory Rate 20 20 20 Blood Pressure 124/68 130/66 130/66 Pulse Oximetry 96 96 96 Oxygen Delivery 05/09/22 2
[2022-05-10] MEDS: GABAPENTIN 400 MG CAPSULE 1200 MG PO (17:44)
[2022-05-10] MEDS: diphenhydrAMINE HCl CAP 25 MG CAPSULE PO (19:58)
[2022-05-11 00:02] VITALS: BP 135/77; PULSE 69; RESP 20; TEMP 36.4; O2SAT 93
[2022-05-11 02:03] VITALS: PULSE 70; O2SAT 93
[2022-05-11] MEDS: diphenhydrAMINE HCl CAP 25 MG CAPSULE PO ×2 (03:16→09:19)
[2022-05-11 04:18] VITALS: BP 134/73; PULSE 70; RESP 18; TEMP 36.6; O2SAT 96
[2022-05-11 06:10] LABS: Hematocrit 47.1 % (42.0-52.0); Mean Corpuscular HGB Conc 31.8 g/dl (32-36); Mean Corpuscular Hemoglobin 29.6 pg (26-34); Mean Corpuscular Volume 92.9 fl (80-100); Mean Platelet Volume 9.6 fl (7.4-10.4); Platelet Count Result 264 k/mm3 (150-375); Red Blood Count 5.07 M/mm3 (4.6-6.20); Red Cell Distribution Width 14.1 % (11.5-14.5)
[2022-05-11 06:26] LABS: Anion Gap 9 mmol/L (8-16); Blood Urea Nitrogen 11 mg/dL (9-20); Carbon Dioxide 29 mmol/L (22-30); Chloride 102 mmol/L (98-107); Estimated CRCL calculation 54 ml/min; Estimated Glomerular Filt Rate 54; Glucose 113 mg/dL (65-110); Potassium 4.2 mmol/L (3.4-5.0); Sodium 140 mmol/L (137-145)
--- NOTE | 2022-05-11 07:13 | WPDGIPROGNO ---
Progress Note: A&P Assessment and Plan (1) Occult blood positive stool: Code(s): R19.5 - Other fecal abnormalities Status: Acute Assessment and Plan: He has not had gastrointestinal bleeding in the past. He may, or may not have had a polyp in the past. That last colonoscopy was done in [place]. He has never had an EGD, he has no history of ulcers or severe reflux. He denies dysphagia (2) Abdominal pain: Code(s): R10.9 - Unspecified abdominal pain Status: Acute Assessment and Plan: the pain he states was always worst on the left side. He is still uncomfortable on that side and tender on palpation. he tolerated his full liquid diet yesterday. He is not having any pain today like he normally has had on the left side of his abdomen. No emesis or nausea. He is eager to try eating regular food to see what happens. (3) Abdominal bloating: Code(s): R14.0 - Abdominal distension (gaseous) Status: Acute Assessment and Plan: He states that he remains more distended than normal. He states that this all began just prior to his admission. He does have tympany on exam is morning which may be due in part to the fact that he is just now came off of his CPAP which probably contributes somewhat to intestinal air. It is felt that he had a partial small-bowel obstruction, although he does not have any risk factors that would explain that. 05/11/2022 we discussed his EGD and colonoscopy. The colonoscopy revealed nothing in terms of obstruction or anything that would explain his left-sided pain, but did show diverticular disease and hemorrhoids (4) Arthritis of right knee: Code(s): M17.11 - Unilateral primary osteoarthritis, right knee Status: Chronic Assessment and Plan: he has chronic arthritis in his knee. He also has had gout in a toll has spinal stenosis. For that he uses diclofenac daily. 05/11/2022 surprisingly, there was minimal gastritis due to his chronic use of NSAIDs. I did remind him however that he should always take diclofenac with something in his stomach. Plan EGD with possible biopsy or dilatation or cautery.Colonoscopy with possible biopsy or polypectomy or cautery or injection of substances. If his symptoms return, will consider further investigation of the small bowel as an outpatient Subjective Date/time seen: Keshav Pelletier is a 77 year old male? with chronic arthritis, chronic kidney disease,Who was admitted several days ago with signs symptoms of intestinal obstruction.? He had extensive abdominal distension,? and he was nauseated.? He induced vomiting once but otherwise had not been vomiting.? He also became constipated not having had a bowel movement of any decent sort for several days.? A CT scan showed dilated small bowel with air-fluid levels.? ? I have reviewed those films I do not see a distinct cut off or transition point.He has had no prior abdominal surgery.? He had not been losing weight lately.? His appetite has been good he denies dysphagia, heartburn, or any chronic abdominal pain.? He had a colonoscopy about fiber 6 years ago in [place] and he believes it was normal.? He does take diclofenac? and? this was discontinued yesterday.? NG tube was considered.? He was seen by surgery.? Was felt that he did not require surgery.? He was started on clear liquids.? He had 1 meal of solid foods such as rice, and his symptoms began all over again.? He therefore went back on clear liquids.? He has been found to have a dark stool and Hemoccult is positive.? Hemoglobin remains 14.5 05/11/22 07:13 today he feels good. He tolerated his full liquid diet. We discussed the options of advancing to and trying regular diet versus considering further investigation of the small bowel. We had talked about capsule endoscopy of the small bowel which unfortunately must be done as an outpatient per insurance, and should be preceded by small-bowel series to rule ou
--- NOTE | 2022-05-11 08:54 | WPDANESPN ---
Anes - Prog Note Post-Op Date/Time: 05/11/22 08:54 Vital Signs: Last Vital Signs Temp 36.6 C 05/11/22 04:18 Pulse 70 05/11/22 04:18 Resp 18 05/11/22 04:18 BP 134/73 05/11/22 04:18 Pulse Ox 96 05/11/22 04:18 O2 Del Method CPAP 05/11/22 02:03 FiO2 21 05/07/22 23:32 Pain Score (VAS): 0 I/O: Intake & Output 05/10/22 05/11/22 05/11/22 23:59 07:59 15:59 Intake Total 440 390 Output Total 350 400 Balance 90 -10 Laboratory Tests 05/11/22 05:34 05/11/22 05:34 05/11/22 05/11/22 05:34 05:34 WBC 10.0 RBC 5.07 Hgb 15.0 Hct 47.1 MCV 92.9 MCH 29.6 MCHC 31.8 L RDW 14.1 Plt Count 264 MPV 9.6 Sodium 140 Potassium 4.2 Chloride 102 Carbon Dioxide 29 Anion Gap 9 BUN 11 Creatinine 1.30 Estim Creat Clear Calc 54 Estimated GFR 54 L Glucose 113 H Calcium 8.0 L Patient Feedback: Patient satisfied with anesthetic care.
--- NOTE | 2022-05-11 09:09 | PM.PNGS ---
Progress Note: A&P Assessment and Plan (1) Partial obstruction of small intestine: Code(s): K56.600 - Partial intestinal obstruction, unspecified as to cause Status: Acute Assessment and Plan: resolved, exam benign, ADAT, endoscopy reports reviewed, no acute surgical issues, will s/o, call c ?, issues (2) Gastritis: Code(s): K29.70 - Gastritis, unspecified, without bleeding Status: Acute Assessment and Plan: seen on EGD, mgmt per GI, await bx Subjective Subjective Date/Time Seen: 05/11/22 09:09 feels good, +bowel fxn, dangelo full liquids Review of Systems Review of Systems: All systems reviewed & are unremarkable except as noted in HPI and below Exam Const: General: cooperative, comfortable and no acute distress Resp: Auscultation: clear to auscultation bilaterally Cardio: Rate: regular rate Rhythm: regular rhythm GI: Inspection: normal to inspection and non-distended GI Palp: No abdominal tenderness, Yes Soft to palpation and No Tenderness to palpation present (GI) Objective Data Vital Signs Vital Signs: Vital Signs - 24 hr 05/10/22 10:19 05/10/22 12:31 05/10/22 13:42 Temperature 37.0 C 36.8 C Pulse Rate 74 74 76 Respiratory Rate 18 18 23 H Blood Pressure 133/80 140/77 125/74 Pulse Oximetry 93 95 97 Oxygen Delivery Room Air Room Air 05/10/22 13:52 05/10/22 14:02 05/10/22 15:26 Temperature 36.9 C Pulse Rate 67 74 65 Respiratory Rate 15 20 18 Blood Pressure 125/74 145/87 H 147/80 H Pulse Oximetry 97 97 93 Oxygen Delivery Room Air Room Air 05/10/22 18:19 05/10/22 19:31 05/10/22 20:00 Temperature 37.2 C 36.8 C Pulse Rate 74 81 Respiratory Rate 18 20 Blood Pressure 161/72 H 143/78 H Pulse Oximetry 92 95 Oxygen Delivery Room Air 05/10/22 22:10 05/11/22 00:02 05/11/22 02:03 Temperature 36.4 C L Pulse Rate 76 69 70 Respiratory Rate 20 Blood Pressure 135/77 Pulse Oximetry 93 93 93 Oxygen Delivery CPAP CPAP 05/11/22 04:18 Temperature 36.6 C Pulse Rate 70 Respiratory Rate 18 Blood Pressure 134/73 Pulse Oximetry 96 Oxygen Delivery Intake/Output Intake/Output: Intake & Output 05/08/22 05/09/22 05/10/22 05/11/22 23:59 23:59 23:59 23:59 Intake Total 2600 4030 490 390 Output Total 300 350 400 Balance 2600 3730 140 -10 Meds/Results Medications: Active Medications Generic Name Dose Route Start Last Admin Trade Name Freq PRN Reason Stop Dose Admin Atorvastatin Calcium 10 mg 05/09/22 09:00 05/10/22 17:43 Atorvastatin 10 Mg Tablet PO Not Given DAILY [facility] Diphenhydramine HCl 25 mg 05/10/22 19:32 05/11/22 03:16 Diphenhydramine Hcl Cap 25 Mg Capsule PO 25 mg Q6H PRN Administration Itching Furosemide 20 mg 05/08/22 13:05 Furosemide 20 Mg Tablet PO DAILY PRN edema Gabapentin 1,200 mg 05/08/22 13:00 05/10/22 17:44 Gabapentin 400 Mg Capsule PO 1,200 mg TID GENIA Administration Lisinopril 20 mg 05/09/22 09:00 05/10/22 10:03 Lisinopril 20 Mg Tablet PO 20 mg DAILY [facility] Administration Morphine Sulfate 2 mg 05/07/22 22:57 05/09/22 00:14 Morphine Sulfate (*Crx) 4 Mg/Ml Inj IV PUSH 2 mg Q4H PRN Administration Pain Rated 7-10 Ondansetron HCl 4 mg 05/08/22 14:54 05/08/22 16:03 Ondansetron Inj 4 Mg/2 Ml Vial IV PUSH 4 mg Q6H PRN Administration Nausea And Vomiting Pantoprazole Sodium 40 mg 05/08/22 13:05 05/10/22 17:43 Pantoprazole 40 Mg Tablet PO Not [facility] Results: ITS Impressions Chest X-Ray 05/07/22 09:32 IMPRESSION: Mild atelectasis at the right lung base Abdomen/Pelvis CT 05/07/22 10:11 IMPRESSION: Dilated small bowel with air-fluid levels, nondilated ascending and transverse colon with fluid levels. Consider enterocolitis. Partial small bowel obstruction is not excluded Diverticulosis of the colon; no evidence of diverticulitis. Abdomen X-Ray 05/09/22 14:24 IMPRESSIO
[2022-05-11] MEDS: GABAPENTIN 400 MG CAPSULE 1200 MG PO ×2 (09:18→12:33)
[2022-05-11] MEDS: ATORVASTATIN 10 MG TABLET PO (09:19)
[2022-05-11] MEDS: lisinopriL 20 MG TABLET PO (09:19)
[2022-05-11] MEDS: PANTOPRAZOLE 40 MG TABLET PO (09:19)
[2022-05-11 10:00] VITALS: BP 135/73; PULSE 78; RESP 16; TEMP 36.8; O2SAT 95
[2022-05-11 14:00] VITALS: BP 142/85; PULSE 79; RESP 18; TEMP 36.8; O2SAT 95
--- NOTE | 2022-05-11 14:07 | PM.DS ---
DS: Admitting Diagnosis Discharge Date 05/11/2022 Admitting Diagnosis Partial SBO DS: Discharge Diagnosis Discharge Diagnosis (1) Partial obstruction of small intestine: Code(s): K56.600 - Partial intestinal obstruction, unspecified as to cause Status: Acute Assessment and Plan: Partial obstruction versus ileus. CT a/p showed dilated small bowel with air-fluid levels and nondilated ascending and transverse colon with fluid levels Seen in consultation by General surgery and Gastroenterology Symptomatic improvement with bowel rest and IV fluid hydration Able to slowly advance diet and was able to tolerate a low-fiber, bland diet Bowel function returned Colonoscopy unremarkable. (2) Gastritis: Onset Date: 05/10/22 Code(s): K29.70 - Gastritis, unspecified, without bleeding Status: Acute Assessment and Plan: Patient noted to have dark stool by nursing staff. Stool was positive for occult blood He was seen in consultation by Gastroenterology EGD completed on 05/10/2022 which demonstrated mild localized gastritis Patient takes diclofenac twice a day. Instructed to take this with food Discussed with GI, no need for daily PPI given only mild gastritis (3) Occult blood positive stool: Code(s): R19.5 - Other fecal abnormalities Status: Inactive Assessment and Plan: See above [place] to be due to gastritis Colonoscopy completed with no evidence of bleeding. Showed diverticulosis with no perforation, abscess, bleeding, and internal hemorrhoids without bleeding (4) Dehydration: Code(s): E86.0 - Dehydration Status: Resolved Assessment and Plan: Resolved. Secondary to poor oral intake, nausea, vomiting Patient was rehydrated with IV fluids and tolerated PO fluid intake (5) Essential (primary) hypertension: Code(s): I10 - Essential (primary) hypertension Status: Acute Assessment and Plan: Blood pressures reviewed and were well controlled. Continue home lisinopril DS: Summary Hospital Course Hospital Course: Date of admission: 05/07/2022 Date of discharge: 05/11/2022 Keshav Pelletier is a 77-year-old male with a history of CKD, CAD, hypertension, and arthritis who presented to the emergency department on 05/07/2022 with complaints of dull abdominal pain rated 8/10 with 1 episode of emesis. On presentation to the ED, his vital signs were stable, he was afebrile, laboratory workup unremarkable, CT showed dilated small bowel with air-fluid levels and nondilated ascending and transverse colon with fluid levels. He was admitted to the hospitalist service for further evaluation management was seen in consultation by General surgery and Gastroenterology. Please see above for further details. Patient had overall improvement following bowel rest and rehydration. His bowel function returned. He underwent EGD and colonoscopy during admission. He was able to advance to a bland diet and tolerated this well. Given his overall improvement, he was determined to no longer require inpatient care and was discharged in hemodynamically stable condition on 05/11/2022. Time Spent with Patient Time attestation: Total time spent providing and/or coordinating discharge services: 37 minutes Time spent: Greater than 30 minutes Exam Narrative: General: Well-nourished, well-appearing 77-year-old male, sitting up in bed, comfortable, NARD Neuro: awake, alert and oriented x4, speech clear, no focal neuro deficits noted HEENMT: normocephalic, atraumatic, EOMI, sclerae anicteric Respiratory: clear to auscultation bilaterally, nonlabored breathing Cardio: regular rate, regular rhythm with S1-S2 Abdomen: Nondistended, normoactive bowel sounds, soft, nontender to palpation Extremities: no edema, erythema, or tenderness to palpation, DP pulses 2+ bilaterally Skin: no rashes or lesions, warm and dry Psych: appropriate m
== END 2022-05-11 15:19 | disposition home or self-care (01) | DRG 390 ==
LOC: ANHED 09:18 → ANH2MED 18:44
PROVIDERS: Internal Medicine Gastroenterology; Physician Assistant; Admitting Provider Chiropractor; Emergency Provider Preventive Medicine Aerospace Medicine; PCP Family Medicine; Visit Provider Hospitalist
PROC: 0DJ08ZZ Inspection of Upper Intestinal Tract, Via Natural or Artificial Opening Endoscopic (ICD-10-PCS; CPT 43235; principal; 2022-05-10 15:45)
DX: K56.600 Partial intestinal obstruction, unspecified as to cause (principal); K56.7 Ileus, unspecified; K57.30 Diverticulosis of large intestine without perforation or abscess without bleeding; K29.70 Gastritis, unspecified, without bleeding; K64.8 Other hemorrhoids; E86.0 Dehydration; I12.9 Hypertensive chronic kidney disease with stage 1 through stage 4 chronic kidney disease, or unspecified chronic kidney disease; M19.90 Unspecified osteoarthritis, unspecified site; N18.32 Chronic kidney disease, stage 3b; I25.10 Atherosclerotic heart disease of native coronary artery without angina pectoris; E78.2 Mixed hyperlipidemia; M48.062 Spinal stenosis, lumbar region with neurogenic claudication; M65.311 Trigger thumb, right thumb; Z87.891 Personal history of nicotine dependence
CPT/HCPCS: 36415; 71046; 74018; 74177; 80048; 80053; 80076; 82274; 83605; 83690; 84484; 85025; 85027; 85610; 85730; 87081; 93005; 96361; 96374; 96375; 96376; 99285; A9270; J2270; J2405; J2704; J7030; J7120; Q9967

== ENCOUNTER → 2022-06-28 10:57 | Outpatient (CLI) | payer MEDICARE, SELFPAY ==
--- NOTE | ~2022-06-28 | MR_ITS ---
EXAMINATION: MR lumbar spine wo con DATE: 06/28/2022 11:26 INDICATION: Lumbar spinal stenosis. Low back pain. Right leg numbness. TECHNIQUE: Magnetic resonance imaging (MRI) of the lumbar spine was performed without intravenous con trast. Sequences included sagittal T2-weighted FSE, sagittal T2-weighted FS FSE, sagittal T1-weighted FSE, and axial T2-weighted FSE. COMPARISON: Lumbar spine MRI 08/06/2020 FINDINGS: Bone alignment is normal. Vertebral body heights are normal. There is mildly decreased disc height at L4-L5. The distal spinal cord signal intensity is normal. The conus medullaris is at T12. The following disc levels are specifically discussed: L1-L2: The disc does not extend beyond the endplate margin. There is severe bilateral facet joint ost eoarthritis. There is no neural foraminal stenosis. There is no central canal stenosis. L2-L3: The disc is mildly bulging. There is severe bilateral facet joint osteoarthritis. There is mil d bilateral neural foraminal stenosis. There is no central canal stenosis. L3-L4: The disc is bulging and has an annular fissure. There is severe bilateral facet joint osteoart hritis. There is moderate bilateral neural foraminal stenosis. There is mild central canal stenosis. L4-L5: The disc is bulging and has an annular fissure. There is severe bilateral facet joint osteoart hritis. There is moderate bilateral neural foraminal stenosis. There is severe central canal stenosis . L5-S1: The disc does not extend beyond the endplate margin. There is severe bilateral facet joint ost eoarthritis. There is mild bilateral neural foraminal stenosis. There is no central canal stenosis. IMPRESSION: 1. Severe lumbar spondylosis, stable from 08/06/2020. Reviewed, dictated and finalized at location B.
== END ==
PROVIDERS: PCP Family Medicine
DX: M47.817 Spondylosis without myelopathy or radiculopathy, lumbosacral region (principal); M48.07 Spinal stenosis, lumbosacral region
CPT/HCPCS: 72148

== ENCOUNTER 2023-05-23 22:11 | Emergency (ER) | payer MEDICARE, SELFPAY ==
[2023-05-23 22:16] VITALS: BP 172/75; PULSE 65; RESP 20; TEMP 35.7; O2SAT 100
--- NOTE | 2023-05-23 22:24 | ECG_ITS ---
Measurements Intervals [place] Rate: 62 P: 38 CO: 236 QRS: 48 QRSD: 98 T: 30 QT: 398 QTc: 405 Interpretive Statements SINUS RHYTHM WITH FIRST DEGREE AV BLOCK OTHERWISE NORMAL ECG COMPARED TO ECG 05/07/2022 08:47:40 FIRST DEGREE AV BLOCK NOW PRESENT Electronically Signed On 05-24-2023 12:02:30 CDT by James Jones M.D.
[2023-05-23 22:32] LABS: Basophils Absolute Auto 0.1 K/mm3 (0.0-0.1); Basophils Percent Auto 0.5 % (0.2-1.2); Eosinophils Percent Auto 0.3 % (0-4.4); Hematocrit 55.9 % (42.0-52.0); Hemoglobin 18.3 g/dL (14.0-18.0); Immature Granulocyte Absolute 0.12 K/mm3 (0.00-0.031); Immature Granulocyte Percent A 0.9 % (0-0.5); Lymphocytes Absolute Auto 1.87 K/mm3 (0.9-3.2); Lymphocytes Percent Auto 13.7 % (18.3-44.2); Mean Corpuscular HGB Conc 32.7 g/dl (32-36); Mean Corpuscular Hemoglobin 30.4 pg (26-34); Mean Platelet Volume 9.9 fl (7.4-10.4); Monocytes Absolute Auto 0.9 K/mm3 (0.1-0.6); Monocytes Percent Auto 6.4 % (2.6-8.5); Neutrophils Absolute Auto 10.7 K/mm3 (1.3-6.7); Neutrophils Percent Auto 78.2 % (45.5-73.1); Platelet Count Result 212 k/mm3 (150-375); Red Blood Count 6.01 M/mm3 (4.6-6.20); Red Cell Distribution Width 14.6 % (11.5-14.5); White Blood Count 13.7 K/mm3 (4.5-10.0)
[2023-05-23 22:41] LABS: Alanine Aminotransferase 29 U/L (6-50); Albumin Level 4.5 g/dL (3.5-5.1); Alkaline Phosphatase 77 U/L (38-126); Anion Gap 13 mmol/L (8-16); Aspartate Amino Transferase 35 U/L (17-59); Bilirubin,Total 2.2 mg/dL (0.2-1.3); Blood Urea Nitrogen 16 mg/dL (9-20); Calcium 8.8 mg/dL (8.4-10.2); Carbon Dioxide 21 mmol/L (22-30); Chloride 104 mmol/L (98-107); Estimated CRCL calculation 58 ml/min; Estimated Glomerular Filt Rate 59; Glucose 142 mg/dL (65-110); Potassium 3.9 mmol/L (3.4-5.0); Sodium 138 mmol/L (137-145)
--- NOTE | 2023-05-23 23:38 | PC.NURSE ---
pt. family up to front desk coordinator multiple times to see how long. ER educated pt. family member that RN did not have any updates. pt. family member requesting RN give results of pt. blood tests. RN educated family member that RN cannot interpret pt. blood values. pt. family member wheeled pt. out of ed. pt. NAD upon departure.
== END 2023-05-23 23:38 | disposition left against medical advice (07) ==
LOC: ANHED 23:49
PROVIDERS: Emergency Provider Emergency Medicine; PCP Family Medicine
DX: R42 Dizziness and giddiness (principal)
CPT/HCPCS: 36415; 80053; 85025; 93005; 99199

== ENCOUNTER → 2023-07-04 12:51 | Outpatient (CLI) | payer MEDICARE, SELFPAY ==
--- NOTE | ~2023-07-04 | MR_ITS ---
EXAMINATION: MR brain/brain stem wo/w con DATE: 07/04/2023 13:54 INDICATION: Unspecified hearing loss, left ear. Dizziness. TECHNIQUE: Magnetic resonance imaging (MRI) of the brain and brainstem was performed without and with 20 mL MultiHance intravenous contrast. COMPARISON: None. FINDINGS: There is an old infarct in the right basal ganglia. There are scattered areas of nonspecifi c increased T2-weighted signal intensity in the cerebral white matter, which is within normal limits for the patient's age. There is no intracranial hemorrhage, acute infarction, or abnormal intracrania l mass lesion. The ventricles are normal in size. The internal auditory canals and inner ears and tym panic cavities are normal. There are bilateral mastoid effusions. There is mucosal thickening in the paranasal sinuses. The orbits are normal. IMPRESSION: 1. Old infarct in the right basal ganglia. 2. Bilateral mastoid effusions. Reviewed, dictated and finalized at location A.
== END ==
PROVIDERS: PCP Family Medicine; Visit Provider Family Medicine
DX: H91.92 Unspecified hearing loss, left ear (principal); I63.50 Cerebral infarction due to unspecified occlusion or stenosis of unspecified cerebral artery; H74.8X3 Other specified disorders of middle ear and mastoid, bilateral
CPT/HCPCS: 70553; A9577

== ENCOUNTER 2023-07-25 15:34 | Outpatient (CLI) | payer MEDICARE, SELFPAY ==
--- NOTE | ~2023-07-25 | US_ITS ---
EXAMINATION: US carotid duplex BI DATE: 07/25/2023 16:19 INDICATION: Cerebral infarction TECHNIQUE: Grayscale, color Doppler, and pulsed Doppler images of the cervical carotid arteries were obtained. The degree of vessel stenosis is placed in one of the following categories: normal, <50%, 5 0-69%, >=70% but less than near-occlusion, near-occlusion, or total occlusion. Note that percent sten osis relative to normal distal artery lumen diameter is indirectly measured from velocity measurement s as described by Chidi, et al. Radiology 2003; [id number]. COMPARISON: None. FINDINGS: RIGHT: The right common carotid artery (CCA) peak systolic velocity (PSV) is 91 cm/s. The right internal car otid artery (ICA) PSV is 54 cm/s. The right ICA end-diastolic velocity (EDV) is 15 cm/s. The right IC A/CCA PSV ratio is 0.6. Grayscale and color Doppler images yield an estimate of <50% diameter reducti on from plaque in the ICA. The external carotid artery (ECA) PSV is 102 cm/s. There is antegrade flow in the right vertebral artery. LEFT: The left CCA PSV is 93 cm/s. The left ICA PSV is 57 cm/s. The left ICA EDV is 20 cm/s. The left ICA/C CA PSV ratio is 0.6. Grayscale and color Doppler images yield an estimate of <50% diameter reduction from plaque in the ICA. The ECA PSV is 81 cm/s. There is antegrade flow in the left vertebral artery. IMPRESSION: 1. <50% stenosis in the right internal carotid artery. 2. <50% stenosis in the left internal carotid artery. Reviewed, dictated and finalized at location A.
== END 2023-07-25 15:35 | disposition home or self-care (01) ==
PROVIDERS: PCP Family Medicine; Visit Provider Family Medicine
DX: I63.9 Cerebral infarction, unspecified (principal); I65.23 Occlusion and stenosis of bilateral carotid arteries
CPT/HCPCS: 93880

== ENCOUNTER 2023-07-26 14:09 | Outpatient (CLI) | payer MEDICARE, SELFPAY ==
--- NOTE | ~2023-07-26 | MR_ITS ---
EXAMINATION: MR lumbar spine wo/w con DATE: 07/26/2023 15:31 INDICATION: Lumbar stenosis with neurogenic claudication. TECHNIQUE: Magnetic resonance imaging (MRI) of the lumbar spine was performed without and with 20 mL MultiHance intravenous contrast. COMPARISON: Lumbar spine MRI 06/28/2022 FINDINGS: Bone alignment is normal. Vertebral body heights are normal. There is mildly decreased disc height at L4-L5. The distal spinal cord signal intensity is normal. The conus medullaris is at T12-L 1. The following disc levels are specifically discussed: L1-L2: The disc does not extend beyond the endplate margin. There is severe bilateral facet joint ost eoarthritis. There is no neural foraminal stenosis. There is no central canal stenosis. L2-L3: The disc is mildly bulging. There is severe bilateral facet joint osteoarthritis. There is mil d bilateral neural foraminal stenosis. There is no central canal stenosis. L3-L4: The disc is bulging and has an annular fissure. There is severe bilateral facet joint osteoart hritis. There is mild bilateral neural foraminal stenosis. There is mild central canal stenosis. L4-L5: The disc is bulging and has an annular fissure. There is severe bilateral facet joint osteoart hritis. There is a 12 x 6 mm synovial cyst on the right. There is moderate bilateral neural foraminal stenosis. There is moderate central canal stenosis. There are likely changes of left hemilaminotomy. L5-S1: The disc is bulging. There is severe bilateral facet joint osteoarthritis. There is mild bilat eral neural foraminal stenosis. There is no central canal stenosis. IMPRESSION: 1. Moderate lumbar spondylosis with worsened synovial cyst of the right facet joint at L4-L5. Reviewed, dictated and finalized at location E. IMPRESSION: 1. Moderate lumbar spondylosis with worsened synovial cyst of the right facet j oint at L4-L5.
== END 2023-07-26 14:10 ==
LOC: GOSHIMG 14:10
PROVIDERS: PCP Family Medicine
DX: M48.062 Spinal stenosis, lumbar region with neurogenic claudication (principal); M43.06 Spondylolysis, lumbar region
CPT/HCPCS: 72158; A9577

== ENCOUNTER → 2024-04-24 10:40 | Outpatient (REF) | payer MEDICARE, SELFPAY | LOC: ANHLAB 10:40 | PROVIDERS: PCP Family Medicine; Visit Provider Plastic Surgery | DX: C44.629 Squamous cell carcinoma of skin of left upper limb, including shoulder (principal) | CPT/HCPCS: 88305 ==

== ENCOUNTER 2025-04-03 12:45 | Outpatient (CLI) | payer MEDICARE, SELFPAY ==
--- NOTE | ~2025-04-03 | MR_ITS ---
MRI of the lumbar spine Clinical History: Radiculopathy Technique: Axial T2-weighted images, and sagittal T1-weighted, T2-weighted, and STIR images were acqu ired. COMPARISON: 07/26/2023 Findings: Status post interval posterior interbody fusion from L4 to L5. Bilateral rods and transpedi cular screws are present as well as disc fusion device. Prior posterior decompression present the L4- L5 level. No acute fracture or sublocation seen. At L1-L2, there is no disc bulge or herniation. There is moderate to advanced facet arthropathy. No c entral canal stenosis or neural foraminal narrowing. At L2-L3, there is minimal disc bulge and severe facet arthropathy. There is mild to moderate central canal stenosis. Neural foramina are preserved. At L3-L4, there is diffuse disc bulge with severe facet arthropathy, resulting in severe spinal canal stenosis/thecal sac compression. There is moderate bilateral neural foraminal narrowing. At L4-L5, there is no disc bulge or herniation. There is advanced facet arthropathy with prior supply chain intern ior decompression. No canal stenosis. There is severe left neural foraminal narrowing, and moderate r ight neural foraminal narrowing. At L5-S1, there is minimal disc bulge with moderate to advanced facet arthropathy. No central canal s tenosis. There is moderate right neural foraminal narrowing. Left neural foramen preserved. Paravertebral soft tissues are unremarkable. Impression: Severe degenerative spondylosis at L3-L4, as detailed above. Interval postoperative change at the L4-L5 level, as detailed above. Additional mild to moderate degenerative changes, as detailed above. Reviewed, dictated and finalized at [facility]. Impression: Severe degenerative spondylosis at L3-L4, as detailed above. Interval postoperative change at the L4-L5 level, as detailed above. Additional mild to moderate degenerative changes, as detailed above.
== END 2025-04-03 12:46 | disposition home or self-care (01) ==
LOC: MICIMG 12:46
PROVIDERS: PCP Family Medicine
DX: M47.816 Spondylosis without myelopathy or radiculopathy, lumbar region (principal); M47.817 Spondylosis without myelopathy or radiculopathy, lumbosacral region; Z98.1 Arthrodesis status; Z96.698 Presence of other orthopedic joint implants
CPT/HCPCS: 72148